=== PATIENT | male | born 1990 | race Caucasian/White ===

== ENCOUNTER 2018-05-04 12:40 | Inpatient (IN) | payer OTHER ==
[2018-05-04 14:26] VITALS: BMI 19.2
--- NOTE | 2018-05-04 15:25 | HP ---
COWS - Scale Resting Pulse: 0= [place] 80 or Below Sweatin= Chills/Flushing Restless Observation: 1= Difficult to Sit Still Pupil Size: 0= Normal to Room Light Bone or Joint Aches: 2= Severe Diffuse Aches Runny Nose/ Eye Tearin= Runny Nose/Eyes GI Upset > 30mins: 2= Nausea/Diarrhea Tremor Observation: 2= Slight Tremor Visible Yawning Observation: 2= >3x During Session Anxiety or Irritability: 2=Irritable/Anxious Goose Flesh Skin: 0=Smooth Skin COWS Score: 14 CIWA Score - CIWA Score Nausea/Vomitin-Mild Nausea/No Vomiting Muscle Tremors: 4-Moderate,w/Arms Extend Anxiety: 4-Mod. Anxious/Guarded Agitation: 4-Moderately Restless Paroxysmal Sweats: 1-Minimal Palms Moist Orientation: 0-Oriented Tacttile Disturbances: 1-Very Mild Itch/Numbness Auditory Disturbances: 0-None Visual Disturbances: 0-None Headache: 0-None Present CIWA-Ar Total Score: 15 Admission [facility] - HPI Chief Complaint: benzo and opiate withdrawal sx Allergies/Adverse Reactions: Allergies Allergy/AdvReac Type Severity Reaction Status Date / Time vancomycin Allergy Intermediate Rash Verified 05/04/18 15:22 History of Present Illness: 27 years old male with long history of opiate and benzo and nicotine dependence has anxiety and depression is admitted to detox Exam Limitations: No Limitations - Ebola screening Have you traveled outside of the country in the last 21 days: No Have you had contact with anyone from an Ebola affected area: No Have you been sick,other than usual withdrawal symptoms: No Do you have a fever: No - Review of Systems Constitutional: Loss of Appetite, Changes in sleep, Unintentional Wgt. Loss, Unexplained wgt Loss EENT: reports: No Symptoms Reported Respiratory: reports: No Symptoms reported Cardiac: reports: No Symptoms Reported GI: reports: Nausea, Poor Appetite, Poor Fluid Intake, Abdominal cramping : reports: No Symptoms Reported Musculoskeletal: reports: Back Pain, Joint Pain, Muscle Pain, Neck Pain Integumentary: reports: Change in Color (both inner elbows) Neuro: reports: Seizure (benzo withdrawal related), Tremors Endocrine: reports: No Symptoms Reported Hematology: reports: No Symptoms Reported Psychiatric: reports: Judgement Intact, Orientated x3, Anxious, Depressed Other Systems: Reviewed and Negative Patient History - Patient Medical History Hx Anemia: No Hx Asthma: No Hx Chronic Obstructive Pulmonary Disease (COPD): No Hx Cancer: No Hx Cardiac Disorders: No Hx Congestive Heart Failure: No Hx Hypertension: No Hx Hypercholesterolemia: No Hx Pacemaker: No HX Cerebrovascular Accident: No Hx Seizures: Yes (WITHDRAWAL SEIZURES - LAST EPISODE WAS IN 2012) Hx Dementia: No Hx Diabetes: No Hx Gastrointestinal Disorders: No Hx Liver Disease: No Hx Genitourinary Disorders: No Hx Sexually Transmitted Disorders: No Hx Renal Disease (ESRD): No Hx Thyroid Disease: No Hx Human Immunodeficiency Virus (HIV): No (04/21 last) Hx Hepatitis C: No Hx Depression: Yes (AND ANXIETY) Hx Suicide Attempt: No (denies) Hx Bipolar Disorder: No Hx Schizophrenia: No - Patient Surgical History Past Surgical History: Yes Hx Neurologic Surgery: No Hx Cataract Extraction: No Hx Cardiac Surgery: No Hx Lung Surgery: No Hx Breast Surgery: No Hx Breast Biopsy: No Hx Abdominal Surgery: Yes (LEFT INGUINAL HERNIA REPAIR AT 1 YRS OLD) Hx Appendectomy: No Hx Cholecystectomy: No Hx Genitourinary Surgery: No Hx Orthopedic Surgery: No Other Surgical History: left inguinal hernia repair at age 1 Anesthesia Reaction: No - PPD History Previous Implant?: Yes Documented Results: Negative w/o proof Implanted On Prior R Admission?: Yes Date: 03/10/14 Results: 0mm PPD to be Administered?: Yes - Smoking Cessation Smoking history: Current every day smoker Have you smoked in the past 12 months: Yes Aproximately how many cigarettes per day: 10 Cigars Per Day: 0 Hx Chewing Tobacco Use: No Initiated information on smoking cessation: Yes 'Breaking Loose' booklet given: 05/04/18 - Substance & Tx. History Hx Alcohol Use: No Hx Substance Use: Yes Substance Use Type: Cocaine, Heroin, Opiates, Tranquilizers Hx Substance Use Treatment: Yes (02/2018 [facility]) - Substances Abused Heroin Route: Injection Frequency: Daily Amount used: 6-8 bags Age of first use: 23 Date of Last Use: 05/03/18 Cocaine Route: Injection Frequency: Daily Amount used: $100 Age of first use: 18 Date of Last Use: 05/03/18 Xanax Route: Oral Frequency: Daily Amount used: 8-10 mg. Age of first use: 24 Date of Last Use: 05/03/18 Family Disease History - Family Disease History Family Disease History: Heart Disease: Grandparent (), Other: Father, Mother (thyroid), Brother (/OD) Admission Physical Exam [facility] - Vital Signs Vital Signs: Vital Signs - 24 hr 05/04/18 14:22 Temperature 97.4 F L Pulse Rate 72 Respiratory 20 Rate Blood Pressure 111/68 - Physical General Appearance: Yes: Appropriately Dressed, Mild Distress, Thin, Tremorous, Irritable, Sweating, Anxious HEENTM: Yes: Hearing grossly Normal, Normocephalic, Normal Voice Respiratory: Yes: Chest Non-Tender, Lungs Clear, Normal Breath Sounds, No Respiratory Distress, No Accessory Muscle Use Neck: Yes: Supple, Trachea in good position Breast: Yes: Breasts Symetrical, No Discharge Cardiology: Yes: Regular Rhythm, Regular Rate, S1, S2 Abdominal: Yes: Normal Bowel Sounds, Non Tender, Flat Genitourinary: Yes: Within Normal Limits Back: Yes: Normal Inspection Musculoskeletal: Yes: full range of Motion, Gait Steady, Back pain, Muscle Pain Extremities: Yes: Normal Inspection (iv heroin both inner elbows), Normal Range of Motion, Non-Tender, Tremors Neurological: Yes: Fully Oriented, Alert, Motor Strength 5/5, Normal Response, Depressed Affect Integumentary: Yes: Warm, Track [place] Lymphatic: Yes: Within Normal Limits - Diagnostic (1) Opioid dependence with withdrawal Current Visit: Yes Status: Acute (2) Nicotine dependence Current Visit: Yes Status: Acute Qualifiers: Nicotine product type: cigarettes Substance use status: in withdrawal Qualified Code(s): F17.213 - Nicotine dependence, cigarettes, with withdrawal (3) Weight decreased Current Visit: Yes Status: Acute (4) Sedative, hypnotic or anxiolytic dependence with withdrawal, uncomplicated Current Visit: Yes Status: Acute Cleared for Admission [facility] - Detox or Rehab [facility] Level of Care: Medically Managed Detox Regimen/Protocol: Methadone/Valium [facility] Breath Alcohol Content Breath Alcohol Content: 0 Urine Drug Screen - Control Is Test Valid: Yes - Results Drug Screen Negative: No Urine Drug Screen Results: PINA-Cocaine, OPI-Opiates, BZO-Benzodiazepines, MTD- Methadone
[2018-05-04] MEDS ORDERED: guaiFENesin/D-METHORPHAN HB 10 ML UNIT-DOSE CUPS PO PRN (15:31)
[2018-05-04] MEDS ORDERED: MAG HYDROX/AL HYDROX/SIMETH 30 ML UNIT-DOSE CUP PO PRN (15:31)
[2018-05-04] MEDS ORDERED: NICOTINE POLACRILEX 2 MG GUM BC PRN (15:31)
[2018-05-04] MEDS ORDERED: MAGNESIUM HYDROX 2400MG/30ML ORAL SUSPENSION 30 ML CUP PO PRN (15:31)
[2018-05-04] MEDS ORDERED: LOPERAMIDE HCL 2 MG CAPSULE PO PRN (15:31)
[2018-05-04] MEDS ORDERED: P-EPHED 60MG/TRIPROLIDI 2.5MG TABLET PO PRN (15:31)
[2018-05-04] MEDS ORDERED: MAGNESIUM CITRATE 300 ML BOTTLE PO PRN (15:31)
[2018-05-04] MEDS ORDERED: ACETAMINOPHEN 325 MG TABLET (FP) PO PRN (15:31)
[2018-05-04] MEDS ORDERED: MENTHOL/PHENOL 1 EACH UD MM PRN (15:31)
[2018-05-04] MEDS ORDERED: IBUPROFEN 400 MG TABLET (FP) PO PRN (15:31)
[2018-05-04] MEDS ORDERED: METHADONE HCL 10 MG TABLET (FOR DETOX USE ONLY) PO ONE ×2 (17:30→23:00)
[2018-05-04] MEDS ORDERED: diazePAM 5 MG TABLET PO ONE (17:30)
[2018-05-04] MEDS: GABAPENTIN 100 MG CAPSULE (FP) PO SCH ×2 (18:04→22:57)
[2018-05-04] MEDS: BACLOFEN 10 MG TABLET (FP) PO SCH ×2 (18:04→22:57)
[2018-05-04] MEDS: BACITRACIN 0.9 GM PACKET TP SCH ×2 (18:04→22:58)
[2018-05-04] MEDS: NICOTINE 14 MG/24 HOURS TOPICAL PATCH TD SCH (18:06)
[2018-05-04] MEDS ORDERED: MELATONIN 5 MG TABLETS PO PRN (22:00)
[2018-05-04] MEDS ORDERED: THIAMINE HCL 100 MG TABLET (FP) PO SCH (22:00)
[2018-05-04] MEDS: diazePAM 5 MG TABLET PO SCH (22:57)
[2018-05-04 23:15] LABS: URINE APPEARANCE CLEAR; URINE BILIRUBIN NEGATIVE (<2.0 mg/dL); URINE COLOR LTYELLOW; URINE GLUCOSE (UA) NEGATIVE (NEGATIVE); URINE KETONE NEGATIVE (NEGATIVE); URINE LEUK ESTERASE NEGATIVE (NEGATIVE); URINE NITRITE NEGATIVE (NEGATIVE); URINE PROTEIN NEGATIVE (NEGATIVE); URINE UROBILINOGEN NEGATIVE mg/dL (0.2-1.0)
[2018-05-05] MEDS: diazePAM 5 MG TABLET PO SCH ×2 (06:41→14:58)
[2018-05-05] MEDS: BACLOFEN 10 MG TABLET (FP) PO SCH ×2 (08:37→14:58)
[2018-05-05] MEDS: diazePAM 5 MG TABLET PO PRN ×2 (08:37→12:38)
[2018-05-05] MEDS: GABAPENTIN 100 MG CAPSULE (FP) PO SCH ×2 (08:37→14:58)
[2018-05-05] MEDS ORDERED: PRENATAL VITAMINS W/ FOLIC ACID TABLET (FP) PO SCH (10:00)
[2018-05-05] MEDS ORDERED: METHADONE HCL 10 MG TABLET (FOR DETOX USE ONLY) PO SCH (10:00)
[2018-05-05 10:17] LABS: HEMATOCRIT 40.6 % (35.4-49); HEMOGLOBIN 13.9 GM/dL (11.7-16.9); MCH 31.4 pg (25.7-33.7); MCHC 34.1 g/dl (32.0-35.9); MEAN CELL VOLUME 91.8 fl (80-96); MEAN PLT VOLUME 9.2 fl (7.5-11.1); PLATELET COUNT 210 K/MM3 (134-434); RBC 4.42 M/mm3 (4.00-5.60); RDW 14.1 % (11.9-15.9)
[2018-05-05 10:23] LABS: CHLORIDE 110 mmol/L (98-107); POTASSIUM 4.4 mmol/L (3.5-5.1); SODIUM 145 mmol/L (136-145)
[2018-05-05 10:43] LABS: ALBUMIN 3.7 g/dl (3.4-5.0); ALK PHOS 55 U/L (45-117); ANION GAP 6 (8-16); BILIRUBIN,TOTAL 0.4 mg/dL (0.2-1.0); BLOOD UREA NITROGEN 8 mg/dL (7-18); CALCIUM 9.2 mg/dL (8.5-10.1); CO2 29 mmol/L (21-32); CREATININE 0.9 mg/dL (0.7-1.3); GLUCOSE,RANDOM 93 mg/dL (74-106); SGOT/AST 12 U/L (15-37); SGPT/ALT 19 U/L (12-78); TOT PROT 6.4 g/dl (6.4-8.2)
[2018-05-05] MEDS: BACITRACIN 0.9 GM PACKET TP SCH ×2 (10:46→14:58)
[2018-05-05] MEDS: NICOTINE 14 MG/24 HOURS TOPICAL PATCH TD SCH (10:47)
--- NOTE | 2018-05-05 12:03 | PN ---
[facility] CIWA - CIWA Score Nausea/Vomitin-No Nausea/No Vomiting Muscle Tremors: 4-Moderate,w/Arms Extend Anxiety: 4-Mod. Anxious/Guarded Agitation: 3 Paroxysmal Sweats: 1-Minimal Palms Moist Orientation: 0-Oriented Tacttile Disturbances: 0-None Auditory Disturbances: 0-None Visual Disturbances: 0-None Headache: 0-None Present CIWA-Ar Total Score: 12 S COWS - Scale Resting Pulse: 0= [place] 80 or Below Sweatin= Chills/Flushing Restless Observation: 3= Extraneous Movement Pupil Size: 2= Moderately Dilated Bone or Joint Aches: 1= Mild Discomfort Runny Nose/ Eye Tearin= None GI Upset > 30mins: 0= None Tremor Observation of Outstretched Hands: 2= Slight Tremor Visible Yawning Observation: 1= 1-2x During Session Anxiety or Irritability: 2=Irritable/Anxious Goose Flesh Skin: 0=Smooth Skin COWS Score: 12 S Progress Note (SOAP) Subjective: ANXIETY,HOT/COLD CHILLS,INTERMITTENT SLEEP,FATIGUE, Objective: 05/05/18 12:00 Vital Signs 05/05/18 05/05/18 05/05/18 06:29 06:30 09:18 Temperature 97.4 F L 97.0 F L Pulse Rate 41 L 43 L Respiratory 18 18 18 Rate Blood Pressure 85/55 104/51 Laboratory Tests 05/04/18 05/05/18 05/05/18 Unknown 07:00 07:00 WBC 5.0 RBC 4.42 Hgb 13.9 Hct 40.6 MCV 91.8 MCH 31.4 MCHC 34.1 RDW 14.1 Plt Count 210 MPV 9.2 Sodium 145 Potassium 4.4 Chloride 110 H Carbon Dioxide 29 Anion Gap 6 L BUN 8 Creatinine 0.9 Creat Clearance w eGFR > 60 Random Glucose 93 D Calcium 9.2 Total Bilirubin 0.4 AST 12 L ALT 19 D Alkaline Phosphatase 55 Total Protein 6.4 Albumin 3.7 Urine Color Ltyellow Urine Appearance Clear Urine pH 6.0 Ur Specific [place] 1.011 Urine Protein Negative Urine Glucose (UA) Negative Urine Ketones Negative Urine Blood Negative Urine Nitrite Negative Urine Bilirubin Negative Urine Urobilinogen Negative Ur Leukocyte Esterase Negative VS NOTED. PT REPORTS BP AND P ARE HIS NORMAL RANGE. ASYMPTOMATIC. Assessment: 05/05/18 12:00 WITHDRAWAL SX Plan: CONTINUE DETOX INCREASE PO FLUIDS
--- NOTE | 2018-05-05 12:30 | CONSULT ---
[facility] Psychiatric Consult - Data Date of interview: 05/05/18 Admission source: [facility] Identifying data: Patient is a 27 year old single male, without kids, unemployed , and currently homeless. This is one of multiple admissions for patient. Pt. admitted to for opioid, cocaine, and benzodiazepine dependence. Substance Abuse History: Smoking Cessation. Smoking history: Current every day smoker. Have you smoked in the past 12 months: Yes. Aproximately how many cigarettes per day: 10. Cigars Per Day: 0. Hx Chewing Tobacco Use: No. Initiated information on smoking cessation: Yes. 'Breaking Loose' booklet given : 05/04/18. - Substance & Tx. History. Hx Alcohol Use: No. Hx Substance Use: Yes. Substance Use Type: Cocaine, Heroin, Opiates, Tranquilizers. Hx Substance Use Treatment: Yes (02/2018 [facility]). - Substances Abused. Heroin. Route: Injection. Frequency: Daily. Amount used: 6-8 bags. Age of first use: 23. Date of Last Use: 05/03/18. Cocaine. Route: Injection. Frequency: Daily. Amount used: $100. Age of first use: 18. Date of Last Use: 05/03/18. Xanax. Route: Oral. Frequency: Daily. Amount used: 8-10 mg. Age of first use: 24. Date of Last Use: 05/03/18 Medical History: Seizures (withdrawal seizure, last episode in 2012), left inguinal hernia repair at 1 years of age. Psychiatric History: Patient denies h/o psychiatric hospitalization and suicide attempt. Patient reports seeing a psychiatrist several years ago at [facility] in [place] and was prescribed seroquel 50mg. Patient denies current OPD. Pt. reports poor sleep. Physical/Sexual Abuse/Trauma History: Denies. Mental Status Exam - Mental Status Exam Alert and Oriented to: Time, Place, Person Cognitive Function: Good Patient Appearance: Well Groomed Mood: Euthymic Affect: Appropriate Patient Behavior: Guarded, Cooperative Speech Pattern: Appropriate Voice Loudness: Normal Thought Process: Intact, Goal Oriented Thought Disorder: Not Present Hallucinations: Denies Suicidal Ideation: Denies Homicidal Ideation: Denies Insight/Judgement: Poor Sleep: Poorly Appetite: Fair Muscle strength/Tone: Normal Gait/Station: Normal Psychiatric Findings - Problem List ([place] 1, 2,3) (1) Nicotine dependence Current Visit: Yes Status: Acute Qualifiers: Nicotine product type: cigarettes Substance use status: in withdrawal Qualified Code(s): F17.213 - Nicotine dependence, cigarettes, with withdrawal (2) Opioid dependence with withdrawal Current Visit: Yes Status: Acute (3) Sedative, hypnotic or anxiolytic dependence with withdrawal, uncomplicated Current Visit: Yes Status: Acute (4) Substance-induced sleep disorder Current Visit: Yes Status: Acute - Initial Treatment Plan Initial Treatment Plan: Psychoeducation provided. Detoxification in progress. Seroquel 50mg qhs ordered. Benefits and side effects discussed. Verbal consent given.
[2018-05-05 13:57] VITALS: BP 97/51; PULSE 55; TEMP 98.2
--- NOTE | 2018-05-05 16:23 | EKG ---
Test Reason : Blood Pressure : / mmHG Vent. Rate : 061 BPM Atrial Rate : 061 BPM P-R Int : 184 ms QRS Dur : 088 ms QT Int : 422 ms P-R-T Axes : 058 053 048 degrees QTc Int : 424 ms NORMAL SINUS RHYTHM EARLY REPOLARIZATION NORMAL ECG NO PREVIOUS ECGS AVAILABLE Confirmed by ODALIS FLORES MD ([id number]) on 05/05/2018 4:22:43 PM Referred By: Confirmed By:ODALIS FLORES MD
--- NOTE | 2018-05-05 16:34 | DS ---
[facility] Detox Discharge Summary Admission Date: 05/04/18 Discharge Date: 05/05/18 - History Present History: Opioid Dependence, Sedative Dependence Additional Comments: PATIENT HAS PERSONAL ISSUES TO ATTEND TO AND DOES NOT WISH TO STAY TO COMPLETE DETOX REGIMEN. RISKS OF LEAVING DETOX UNIT AGAINST MEDICAL ADVICE AND PRIOR TO COMPLETION OF DETOX REGIMEN EXPLAINED TO PATIENT. PATIENT ADVISED TO GO IMMEDIATELY TO NEAREST ER SHOULD ANY INTOLERABLE DETOX SYMPTOMS DEVELOP AT ANY TIME. PATIENT LEFT DETOX UNIT IN STABLE MEDICAL CONDITION. Pertinent Past History: Anxiety, Depression, History of Seizures (due to Withdrawal), Nicotine Dependence. - Physical Exam Results Vital Signs: Vital Signs Temperature 98.2 F 05/05/18 13:56 Pulse Rate 55 L 05/05/18 13:56 Respiratory Rate 18 05/05/18 13:56 Blood Pressure 97/51 05/05/18 13:56 O2 Sat by Pulse Oximetry (%) Pertinent Admission Physical Exam Findings: WITHDRAWAL SYMPTOMS. Laboratory Tests 05/04/18 05/05/18 05/05/18 Unknown 07:00 07:00 WBC 5.0 RBC 4.42 Hgb 13.9 Hct 40.6 MCV 91.8 MCH 31.4 MCHC 34.1 RDW 14.1 Plt Count 210 MPV 9.2 Sodium 145 Potassium 4.4 Chloride 110 H Carbon Dioxide 29 Anion Gap 6 L BUN 8 Creatinine 0.9 Creat Clearance w eGFR > 60 Random Glucose 93 D Calcium 9.2 Total Bilirubin 0.4 AST 12 L ALT 19 D Alkaline Phosphatase 55 Total Protein 6.4 Albumin 3.7 Urine Color Ltyellow Urine Appearance Clear Urine pH 6.0 Ur Specific [place] 1.011 Urine Protein Negative Urine Glucose (UA) Negative Urine Ketones Negative Urine Blood Negative Urine Nitrite Negative Urine Bilirubin Negative Urine Urobilinogen Negative Ur Leukocyte Esterase Negative RPR Titer 05/05/18 07:00 WBC RBC Hgb Hct MCV MCH MCHC RDW Plt Count MPV Sodium Potassium Chloride Carbon Dioxide Anion Gap BUN Creatinine Creat Clearance w eGFR Random Glucose Calcium Total Bilirubin AST ALT Alkaline Phosphatase Total Protein Albumin Urine Color Urine Appearance Urine pH Ur Specific [place] Urine Protein Urine Glucose (UA) Urine Ketones Urine Blood Urine Nitrite Urine Bilirubin Urine Urobilinogen Ur Leukocyte Esterase RPR Titer Nonreactive LABS NOTED. - Treatment Hospital Course: Detoxed Safely - Medication Discharge Medications: Ambulatory Orders NK [No Known Home Medication] 05/04/18 - Diagnosis (1) Nicotine dependence Current Visit: Yes Status: Acute Qualifiers: Nicotine product type: cigarettes Substance use status: in withdrawal Qualified Code(s): F17.213 - Nicotine dependence, cigarettes, with withdrawal (2) Opioid dependence with withdrawal Current Visit: Yes Status: Acute (3) Sedative, hypnotic or anxiolytic dependence with withdrawal, uncomplicated Current Visit: Yes Status: Acute (4) Substance-induced sleep disorder Current Visit: Yes Status: Acute (5) Weight decreased Current Visit: Yes Status: Acute - AMA Did Patient Leave Against Medical Advice: Yes (PT HAD PERSONAL ISSUES AND DID NOT WISH TO REMAIN TO COMPLETE DETOX REGIMEN)
[2018-05-05] MEDS ORDERED: QUEtiapine FUMARATE 50 MG TABLET PO SCH (22:00)
[2018-05-06] MEDS ORDERED: diazePAM 5 MG TABLET PO SCH (10:00)
[2018-05-06] MEDS ORDERED: METHADONE HCL 5 MG TABLET (FOR DETOX USE ONLY) PO SCH (10:00)
[2018-05-08] MEDS ORDERED: diazePAM 5 MG TABLET PO SCH (10:00)
[2018-05-08] MEDS ORDERED: METHADONE HCL 10 MG TABLET (FOR DETOX USE ONLY) PO SCH (10:00)
[2018-05-09] MEDS ORDERED: METHADONE HCL 5 MG TABLET (FOR DETOX USE ONLY) PO SCH (06:00)
== END 2018-05-05 16:36 | disposition left against medical advice (07) | DRG 770 ==
LOC: YASAS 12:40 → Y3N 17:17
PROVIDERS: ADMIT Surgery; ATTEND Surgery
PROC: HZ2ZZZZ Detoxification Services for Substance Abuse Treatment (ICD-10-PCS; principal; 2018-05-04)
DX: F11.23 Opioid dependence with withdrawal (principal); F13.230 Sedative, hypnotic or anxiolytic dependence with withdrawal, uncomplicated; F17.213 Nicotine dependence, cigarettes, with withdrawal; F19.282 Other psychoactive substance dependence with psychoactive substance-induced sleep disorder; F41.9 Anxiety disorder, unspecified; F32.9 Major depressive disorder, single episode, unspecified; R63.4 Abnormal weight loss; Z68.1 Body mass index [BMI] 19.9 or less, adult; Z86.69 Personal history of other diseases of the nervous system and sense organs
CPT/HCPCS: 36415; 80053; 81003; 85027; 86593; 93005; 93010; J0475

== ENCOUNTER 2018-11-12 10:03 | Inpatient (IN) | payer OTHER ==
[2018-11-12 12:51] VITALS: BMI 20.5
--- NOTE | 2018-11-12 13:46 | HP ---
COWS - Scale Resting Pulse: 0= [place] 80 or Below Sweatin= Chills/Flushing Restless Observation: 3= Extraneous Movement Pupil Size: 1= Pupils >than Normal Bone or Joint Aches: 2= Severe Diffuse Aches Runny Nose/ Eye Tearin= Runny Nose/Eyes GI Upset > 30mins: 2= Nausea/Diarrhea Tremor Observation: 2= Slight Tremor Visible Yawning Observation: 2= >3x During Session Anxiety or Irritability: 2=Irritable/Anxious Goose Flesh Skin: 0=Smooth Skin COWS Score: 17 CIWA Score Nausea/Vomitin Muscle Tremors: 2 Anxiety: 2 Agitation: 2 Paroxysmal Sweats: 1-Minimal Palms Moist Orientation: 0-Oriented Tacttile Disturbances: 1-Very Mild Itch/Numbness Auditory Disturbances: 1-Very Mild Visual Disturbances: 0-None Headache: 2-Mild CIWA-Ar Total Score: 13 - Admission Criteria [facility] Guidelines: Admission for Medically Managed Detox: Requires at least one of the followin. CIWA greater than 12 2. Seizures within the past 24 hours 3. Delirium tremens within the past 24 hours 4. Hallucinations within the past 24 hours 5. Acute intervention needed for co occurring medical disorder 6. Acute intervention needed for co occurring psychiatric disorder 7. Severe withdrawal that cannot be handled at a lower level of care (continued vomiting, continued diarrhea, abnormal vital signs) requiring intravenous medication and/or fluids 8. Patient presents the following: CIWA greater than 12 Admission Criteria Met: Admission criteria met Admission ROS [facility] Chief Complaint: i need help to stop using heroin and xanax,klonopin Allergies/Adverse Reactions: Allergies Allergy/AdvReac Type Severity Reaction Status Date / Time vancomycin Allergy Intermediate Rash Verified 11/12/18 15:01 History of Present Illness: this 28 years old male with heroin and klonopin and xanax dependence,seeking detox,withdrawal symptom,last detox [facility] 05/25 [facility],seen in [facility] [place] in crisis centre for 6 days,discharge on 10/28/18 i stop show suboxone filled on 10/20/18 for 10 days,lorazepam filled on for 7 days stated did noit want to continue suboxone and loazepam any more and did not take medication for 3 weeks syncope nicotine dependence multiple admissions in detox but keep relapsing longest period of sobriety 1 years plan for rehab or senior living residence ready and able Exam Limitations: No Limitations - Ebola screening Have you traveled outside of the country in the last 21 days: No (N) Have you had contact with anyone from an Ebola affected area: No Have you been sick,other than usual withdrawal symptoms: No Do you have a fever: No - Review of Systems Constitutional: Chills, Loss of Appetite, Malaise, Night Sweats, Changes in sleep, Weakness, Unintentional Wgt. Loss EENT: reports: Tearing, Nose Congestion Respiratory: reports: No Symptoms reported Cardiac: reports: Other (slow heart rate) GI: reports: Nausea, Vomiting, Abdominal cramping : reports: No Symptoms Reported Musculoskeletal: reports: Back Pain, Joint Pain, Muscle Pain, Neck Pain Integumentary: reports: Dryness Neuro: reports: Headache, Tremors Endocrine: reports: No Symptoms Reported Hematology: reports: No Symptoms Reported Psychiatric: reports: No Sypmtoms Reported, Judgement Intact, Mood/Affect Appropiate, Orientated x3 Other Systems: Reviewed and Negative Patient History - Patient Medical History Hx Anemia: No Hx Asthma: No Hx Chronic Obstructive Pulmonary Disease (COPD): No Hx Cancer: No Hx Cardiac Disorders: No Hx Congestive Heart Failure: No Hx Hypertension: No Hx Hypercholesterolemia: No Hx Pacemaker: No HX Cerebrovascular Accident: No Hx Seizures: Yes (WITHDRAWAL SEIZURES - LAST EPISODE WAS IN 2012) Hx Dementia: No Hx Diabetes: No Hx Gastrointestinal Disorders: No Hx Liver Disease: No Hx Genitourinary Disorders: No Hx Sexually Transmitted Disorders: No Hx Renal Disease (ESRD): No Hx Thyroid Disease: No Hx Human Immunodeficiency Virus (HIV): No (last 11/04 negative) Hx Hepatitis C: No Hx Depression: Yes (AND ANXIETY) Hx Suicide Attempt: No (denies) Hx Bipolar Disorder: No Hx Schizophrenia: No Other Medical History: no suicidal,no homicidal - Patient Surgical History Past Surgical History: Yes Hx Neurologic Surgery: No Hx Cataract Extraction: No Hx Cardiac Surgery: No Hx Lung Surgery: No Hx Breast Surgery: No Hx Breast Biopsy: No Hx Abdominal Surgery: Yes (LEFT INGUINAL HERNIA REPAIR AT 1 YRS OLD) Hx Appendectomy: No Hx Cholecystectomy: No Hx Genitourinary Surgery: No Hx Section: No Hx Orthopedic Surgery: No Other Surgical History: left inguinal hernia repair at age 1 Anesthesia Reaction: No - PPD History Previous Implant?: Yes Implanted On Prior [facility] Admission?: Yes Date: 05/06/18 Results: no reading PPD to be Administered?: Yes - Smoking Cessation Smoking history: Current every day smoker Have you smoked in the past 12 months: Yes Aproximately how many cigarettes per day: 20 Cigars Per Day: 0 Hx Chewing Tobacco Use: No Initiated information on smoking cessation: Yes 'Breaking Loose' booklet given: 11/12/18 - Substance & Tx. History Hx Alcohol Use: No Hx Substance Use: Yes Substance Use Type: Alcohol, Cocaine, Heroin, Tranquilizers - Substances Abused Heroin Route: Injection Frequency: Daily Amount used: 10 bags Age of first use: 24 Date of Last Use: 11/11/18 Alprazolam (Xanax) Route: Oral Frequency: Daily Amount used: 10 mgs Age of first use: 18 Date of Last Use: 11/11/18 Benzodiazepine (Klonopin) Route: Oral Frequency: Daily (10 mmgs) Amount used: 10 mgs Age of first use: 18 Date of Last Use: 11/11/18 Cocaine Route: Injection Frequency: 1-3 times last 30 days Amount used: 200$ Age of first use: 23 Date of Last Use: 11/10/18 Family Disease History - Family Disease History Family Disease History: Heart Disease: Grandparent (), Other: Father, Mother (thyroid), Brother (/OD) Admission Physical Exam S - Vital Signs Vital Signs: Vital Signs - 24 hr 11/12/18 12:49 Temperature 96.2 F L Pulse Rate 46 L Respiratory 18 Rate Blood Pressure 102/62 - Physical General Appearance: Yes: Moderate Distress, Tremorous, Irritable, Sweating, Anxious HEENTM: Yes: Normal ENT Inspection, ZACARIAS, Pharynx Normal Respiratory: Yes: Lungs Clear, No Respiratory Distress, Respiratory Distress Neck: Yes: Within Normal Limits, Supple, Trachea in good position Breast: Yes: Within Normal Limits Cardiology: Yes: Within Normal Limits, Bradycardia, Other Abdominal: Yes: Within Normal Limits, Normal Bowel Sounds, Non Tender, Flat, Soft Genitourinary: Yes: Within Normal Limits Back: Yes: Muscle Spasm Musculoskeletal: Yes: Back pain, Joint Stiffness, Muscle Pain Extremities: Yes: Tremors 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 NML intact, Fully Oriented, Alert, Motor Strength 5/5 Integumentary: Yes: Dry Lymphatic: Yes: Within Normal Limits - Diagnostic (1) Opioid dependence with withdrawal Current Visit: Yes Status: Acute (2) Uncomplicated sedative, hypnotic or anxiolytic withdrawal Current Visit: Yes Status: Acute (3) Cocaine dependence Current Visit: Yes Status: Acute (4) Nicotine dependence Current Visit: No Status: Acute Qualifiers: Nicotine product type: cigarettes Substance use status: in withdrawal Qualified Code(s): F17.213 - Nicotine dependence, cigarettes, with withdrawal (5) Bradycardia Current Visit: Yes Status: Acute Cleared for Admission [facility] - Detox or Rehab [facility] Level of Care: Medically Managed Detox Regimen/Protocol: Methadone/Valium S Breath Alcohol Content Breath Alcohol Content: 0 Urine Drug Screen - Results Drug Screen Negative: No Urine Drug Screen Results: PINA-Cocaine, OPI-Opiates, BZO-Benzodiazepines, MTD- Methadone, FEN-Fentanyl, BUP-Suboxone
[2018-11-12] MEDS ORDERED: guaiFENesin/D-METHORPHAN HB 10 ML UNIT-DOSE CUPS PO PRN (14:10)
[2018-11-12] MEDS ORDERED: ACETAMINOPHEN 325 MG TABLET (FP) PO PRN (14:10)
[2018-11-12] MEDS ORDERED: LOPERAMIDE HCL 2 MG CAPSULE PO PRN (14:10)
[2018-11-12] MEDS ORDERED: MENTHOL/PHENOL 1 EACH UD MM PRN (14:10)
[2018-11-12] MEDS ORDERED: MAG HYDROX/AL HYDROX/SIMETH 30 ML UNIT-DOSE CUP PO PRN (14:10)
[2018-11-12] MEDS ORDERED: MAGNESIUM HYDROX 2400MG/30ML ORAL SUSPENSION 30 ML CUP PO PRN (14:10)
[2018-11-12] MEDS ORDERED: MAGNESIUM CITRATE 300 ML BOTTLE PO PRN (14:10)
[2018-11-12] MEDS ORDERED: NICOTINE POLACRILEX 2 MG GUM BUC PRN (14:10)
[2018-11-12] MEDS ORDERED: P-EPHED 60MG/TRIPROLIDI 2.5MG TABLET PO PRN (14:10)
[2018-11-12] MEDS ORDERED: CYCLOBENZAPRINE HCL 10 MG TABLET (FP) PO PRN (14:16)
[2018-11-12] MEDS ORDERED: METHADONE HCL 10 MG TABLET (FOR DETOX USE ONLY) PO ONE ×2 (15:00→23:00)
[2018-11-12] MEDS ORDERED: diazePAM 5 MG TABLET PO ONE (15:30)
[2018-11-12] MEDS: NICOTINE 21 MG/24 HOURS TOPICAL PATCH TD SCH (16:01)
[2018-11-12] MEDS: diazePAM 5 MG TABLET PO PRN (17:58)
[2018-11-12] MEDS ORDERED: MELATONIN 5 MG TABLETS PO PRN (22:00)
[2018-11-12] MEDS: THIAMINE HCL 100 MG TABLET (FP) PO SCH (22:23)
[2018-11-12] MEDS: diazePAM 5 MG TABLET PO SCH (22:23)
[2018-11-13] MEDS: diazePAM 5 MG TABLET PO SCH ×3 (05:35→21:57)
[2018-11-13] MEDS ORDERED: METHADONE HCL 10 MG TABLET (FOR DETOX USE ONLY) PO SCH (10:00)
[2018-11-13] MEDS: NICOTINE 21 MG/24 HOURS TOPICAL PATCH TD SCH (10:36)
[2018-11-13] MEDS: PRENATAL VITAMINS W/ FOLIC ACID TABLET (FP) PO SCH (10:36)
[2018-11-13] MEDS: diazePAM 5 MG TABLET PO PRN ×2 (10:36→16:41)
[2018-11-13] MEDS: IBUPROFEN 400 MG TABLET (FP) PO PRN ×2 (10:38→20:09)
[2018-11-13 13:09] LABS: ALBUMIN 3.8 g/dl (3.4-5.0); ALK PHOS 67 U/L (45-117); ANION GAP 6 MMOL/L (8-16); BILIRUBIN,TOTAL 0.3 mg/dL (0.2-1); BLOOD UREA NITROGEN 8 mg/dL (7-18); CHLORIDE 107 mmol/L (98-107); CO2 27 mmol/L (21-32); CREATININE 0.8 mg/dL (0.55-1.3); GLUCOSE,RANDOM 95 mg/dL (74-106); POTASSIUM 4.1 mmol/L (3.5-5.1); SGOT/AST 22 U/L (15-37); SGPT/ALT 43 U/L (13-61); SODIUM 140 mmol/L (136-145); TOT PROT 6.5 g/dl (6.4-8.2)
[2018-11-13 13:13] LABS: HEMATOCRIT 42.2 % (35.4-49); HEMOGLOBIN 15.1 GM/dL (11.7-16.9); MCH 32.8 pg (25.7-33.7); MCHC 35.9 g/dl (32.0-35.9); MEAN CELL VOLUME 91.5 fl (80-96); MEAN PLT VOLUME 9.9 fl (7.5-11.1); PLATELET COUNT 226 K/MM3 (134-434); RBC 4.61 M/mm3 (4.00-5.60); WHITE BLOOD COUNT 5.5 K/mm3 (4.0-10.0)
--- NOTE | 2018-11-13 16:04 | PN ---
[facility] CIWA - CIWA Score Nausea/Vomitin Muscle Tremors: 4-Moderate,w/Arms Extend Anxiety: 4-Mod. Anxious/Guarded Agitation: 2 Paroxysmal Sweats: 3 Orientation: 0-Oriented Tacttile Disturbances: 1-Very Mild Itch/Numbness Auditory Disturbances: 0-None Visual Disturbances: 0-None Headache: 1-Very Mild CIWA-Ar Total Score: 17 BHS COWS - Scale Resting Pulse: 0= [place] 80 or Below Sweatin= Chills/Flushing Restless Observation: 3= Extraneous Movement Pupil Size: 1= Pupils >than Normal Bone or Joint Aches: 2= Severe Diffuse Aches Runny Nose/ Eye Tearin= Runny Nose/Eyes GI Upset > 30mins: 3= Vomiting/Diarrhea Tremor Observation of Outstretched Hands: 2= Slight Tremor Visible Yawning Observation: 1= 1-2x During Session Anxiety or Irritability: 2=Irritable/Anxious Goose Flesh Skin: 0=Smooth Skin COWS Score: 17 [facility] Progress Note (SOAP) Subjective: Tremor, chills, sweating, back pain, nausea, interrupted sleep Objective: 11/13/18 16:02 Last Vital Signs Temp Pulse Resp BP Pulse Ox 97.3 F L 46 L 16 95/60 11/13/18 15:12 11/13/18 15:12 11/13/18 15:12 11/13/18 15:12 Hypotension noted: 95/60; asymptomatic, encouraged to drink more water Bradycardic: pulse 46, denies symptoms, continue to monitor, follow up with PCP for monitoring Laboratory Tests 11/13/18 11/13/18 11/13/18 07:40 07:40 07:40 WBC 5.5 RBC 4.61 Hgb 15.1 Hct 42.2 MCV 91.5 MCH 32.8 MCHC 35.9 RDW 13.0 Plt Count 226 MPV 9.9 Sodium 140 Potassium 4.1 Chloride 107 Carbon Dioxide 27 Anion Gap 6 L BUN 8 Creatinine 0.8 Creat Clearance w eGFR > 60 Random Glucose 95 Calcium 9.0 Total Bilirubin 0.3 AST 22 ALT 43 Alkaline Phosphatase 67 Total Protein 6.5 Albumin 3.8 RPR Titer Nonreactive Labs reviewed Assessment: 11/13/18 16:04 Withdrawal symptoms Plan: Continue detox Encouraged PO water intake
--- NOTE | 2018-11-13 17:13 | EKG ---
Test Reason : Blood Pressure : / mmHG Vent. Rate : 048 BPM Atrial Rate : 048 BPM P-R Int : 186 ms QRS Dur : 092 ms QT Int : 468 ms P-R-T Axes : 058 052 045 degrees QTc Int : 418 ms SINUS BRADYCARDIA OTHERWISE NORMAL ECG WHEN COMPARED WITH ECG OF 04-MAY-2018 17:27, NO SIGNIFICANT CHANGE WAS FOUND Confirmed by MD GASTON MOYSES ([id number]) on 11/13/2018 5:12:49 PM Referred By: Confirmed By:BRIGID GASTON MD
[2018-11-13 21:38] VITALS: BP 101/58; PULSE 55; TEMP 97
[2018-11-13] MEDS: THIAMINE HCL 100 MG TABLET (FP) PO SCH (21:58)
[2018-11-13] MEDS ORDERED: diphenhydrAMINE HCL 25 MG CAPSULE (FP) PO PRN (22:00)
[2018-11-14] MEDS: diazePAM 5 MG TABLET PO PRN (00:41)
[2018-11-14] MEDS ORDERED: METHADONE HCL 5 MG TABLET (FOR DETOX USE ONLY) PO SCH (10:00)
[2018-11-14] MEDS ORDERED: diazePAM 5 MG TABLET PO SCH (10:00)
[2018-11-14] MEDS: NICOTINE 21 MG/24 HOURS TOPICAL PATCH TD SCH (10:35)
[2018-11-14] MEDS: PRENATAL VITAMINS W/ FOLIC ACID TABLET (FP) PO SCH (10:35)
--- NOTE | 2018-11-14 11:28 | PN ---
[facility] CIWA - CIWA Score Nausea/Vomitin-Mild Nausea/No Vomiting Muscle Tremors: 3 Anxiety: 4-Mod. Anxious/Guarded Agitation: 3 Paroxysmal Sweats: 1-Minimal Palms Moist Orientation: 1-Uncertain about Date Tacttile Disturbances: 0-None Auditory Disturbances: 0-None Visual Disturbances: 0-None Headache: 0-None Present CIWA-Ar Total Score: 13 BHS COWS - Scale Resting Pulse: 0= [place] 80 or Below Sweatin= Chills/Flushing Restless Observation: 1= Difficult to Sit Still Pupil Size: 0= Normal to Room Light Bone or Joint Aches: 1= Mild Discomfort Runny Nose/ Eye Tearin= Nasal Congestion GI Upset > 30mins: 2= Nausea/Diarrhea Tremor Observation of Outstretched Hands: 2= Slight Tremor Visible Yawning Observation: 2= >3x During Session Anxiety or Irritability: 2=Irritable/Anxious Goose Flesh Skin: 0=Smooth Skin COWS Score: 12 S Progress Note (SOAP) Subjective: tremor sweat anxiety body aches joints pain restlessness Objective: 11/14/18 11:25 Vital Signs Temperature 97 F L 11/13/18 21:37 Pulse Rate 55 L 11/13/18 21:37 Respiratory Rate 18 11/14/18 03:30 Blood Pressure 101/58 L 11/13/18 21:37 O2 Sat by Pulse Oximetry (%) Laboratory Last Values WBC 5.5 K/mm3 (4.0-10.0) 11/13/18 07:40 RBC 4.61 M/mm3 (4.00-5.60) 11/13/18 07:40 Hgb 15.1 GM/dL (11.7-16.9) 11/13/18 07:40 Hct 42.2 % (35.4-49) 11/13/18 07:40 MCV 91.5 fl (80-96) 11/13/18 07:40 MCH 32.8 pg (25.7-33.7) 11/13/18 07:40 MCHC 35.9 g/dl (32.0-35.9) 11/13/18 07:40 RDW 13.0 % (11.9-15.9) 11/13/18 07:40 Plt Count 226 K/MM3 (134-434) 11/13/18 07:40 MPV 9.9 fl (7.5-11.1) 11/13/18 07:40 Sodium 140 mmol/L (136-145) 11/13/18 07:40 Potassium 4.1 mmol/L (3.5-5.1) 11/13/18 07:40 Chloride 107 mmol/L (98-107) 11/13/18 07:40 Carbon Dioxide 27 mmol/L (21-32) 11/13/18 07:40 Anion Gap 6 MMOL/L (8-16) L 11/13/18 07:40 BUN 8 mg/dL (7-18) 11/13/18 07:40 Creatinine 0.8 mg/dL (0.55-1.3) 11/13/18 07:40 Creat Clearance w eGFR > 60 (>60) 11/13/18 07:40 Random Glucose 95 mg/dL (74-106) 11/13/18 07:40 Calcium 9.0 mg/dL (8.5-10.1) 11/13/18 07:40 Total Bilirubin 0.3 mg/dL (0.2-1) 11/13/18 07:40 AST 22 U/L (15-37) 11/13/18 07:40 ALT 43 U/L (13-61) 11/13/18 07:40 Alkaline Phosphatase 67 U/L (45-117) 11/13/18 07:40 Total Protein 6.5 g/dl (6.4-8.2) 11/13/18 07:40 Albumin 3.8 g/dl (3.4-5.0) 11/13/18 07:40 RPR Titer Nonreactive (NONREACTIVE) 11/13/18 07:40 lab noted Assessment: 11/14/18 11:31 withdrawal sx Plan: continue detox
--- NOTE | 2018-11-14 15:11 | DS ---
[facility] Detox Discharge Summary Admission Date: 11/12/18 Discharge Date: 11/14/18 - History Present History: Opioid Dependence, Sedative Dependence Additional Comments: 28 years old male admitted on for benzo and opiate withdrawal stabilization insists to leave the detox unit without apparent reason patient is alert no acute distress denies suicidal no homocidal no self destructive behavior [facility] services Pertinent Past History: encourage the patient [facility] provide positive input that last detox last one day and this detox last two days patient hesitates to discuss sobriety - Physical Exam Results Vital Signs: Vital Signs Temperature 97 F L 11/13/18 21:37 Pulse Rate 55 L 11/13/18 21:37 Respiratory Rate 18 11/14/18 03:30 Blood Pressure 101/58 L 11/13/18 21:37 O2 Sat by Pulse Oximetry (%) Pertinent Admission Physical Exam Findings: benzo and opiate withdrawal sx Vital Signs Temperature 97 F L 11/13/18 21:37 Pulse Rate 55 L 11/13/18 21:37 Respiratory Rate 18 11/14/18 03:30 Blood Pressure 101/58 L 11/13/18 21:37 O2 Sat by Pulse Oximetry (%) Laboratory Last Values WBC 5.5 K/mm3 (4.0-10.0) 11/13/18 07:40 RBC 4.61 M/mm3 (4.00-5.60) 11/13/18 07:40 Hgb 15.1 GM/dL (11.7-16.9) 11/13/18 07:40 Hct 42.2 % (35.4-49) 11/13/18 07:40 MCV 91.5 fl (80-96) 11/13/18 07:40 MCH 32.8 pg (25.7-33.7) 11/13/18 07:40 MCHC 35.9 g/dl (32.0-35.9) 11/13/18 07:40 RDW 13.0 % (11.9-15.9) 11/13/18 07:40 Plt Count 226 K/MM3 (134-434) 11/13/18 07:40 MPV 9.9 fl (7.5-11.1) 11/13/18 07:40 Sodium 140 mmol/L (136-145) 11/13/18 07:40 Potassium 4.1 mmol/L (3.5-5.1) 11/13/18 07:40 Chloride 107 mmol/L (98-107) 11/13/18 07:40 Carbon Dioxide 27 mmol/L (21-32) 11/13/18 07:40 Anion Gap 6 MMOL/L (8-16) L 11/13/18 07:40 BUN 8 mg/dL (7-18) 11/13/18 07:40 Creatinine 0.8 mg/dL (0.55-1.3) 11/13/18 07:40 Creat Clearance w eGFR > 60 (>60) 11/13/18 07:40 Random Glucose 95 mg/dL (74-106) 11/13/18 07:40 Calcium 9.0 mg/dL (8.5-10.1) 11/13/18 07:40 Total Bilirubin 0.3 mg/dL (0.2-1) 11/13/18 07:40 AST 22 U/L (15-37) 11/13/18 07:40 ALT 43 U/L (13-61) 11/13/18 07:40 Alkaline Phosphatase 67 U/L (45-117) 11/13/18 07:40 Total Protein 6.5 g/dl (6.4-8.2) 11/13/18 07:40 Albumin 3.8 g/dl (3.4-5.0) 11/13/18 07:40 RPR Titer Nonreactive (NONREACTIVE) 11/13/18 07:40 lab noted - Treatment Hospital Course: Detox Protocol Followed, Responded well Patient has Accepted a Rehab [facility] - Medication Discharge Medications: Ambulatory Orders NK [No Known Home Medication] 05/04/18 - Diagnosis (1) Opioid dependence with withdrawal Status: Acute (2) Sedative, hypnotic or anxiolytic dependence with withdrawal, uncomplicated Status: Acute (3) Weight decreased Status: Acute (4) Nicotine dependence Status: Acute Qualifiers: Nicotine product type: cigarettes Substance use status: in withdrawal Qualified Code(s): F17.213 - Nicotine dependence, cigarettes, with withdrawal - AMA Did Patient Leave Against Medical Advice: Yes
[2018-11-16] MEDS ORDERED: diazePAM 5 MG TABLET PO SCH (10:00)
[2018-11-16] MEDS ORDERED: METHADONE HCL 10 MG TABLET (FOR DETOX USE ONLY) PO SCH (10:00)
[2018-11-17] MEDS ORDERED: METHADONE HCL 5 MG TABLET (FOR DETOX USE ONLY) PO SCH (06:00)
== END 2018-11-14 12:47 | disposition left against medical advice (07) | DRG 770 ==
LOC: YASAS 10:03 → Y3N 14:13
PROC: HZ2ZZZZ Detoxification Services for Substance Abuse Treatment (ICD-10-PCS; principal; 2018-11-12)
DX: F11.23 Opioid dependence with withdrawal (principal); F13.230 Sedative, hypnotic or anxiolytic dependence with withdrawal, uncomplicated; F14.20 Cocaine dependence, uncomplicated; F17.213 Nicotine dependence, cigarettes, with withdrawal; F41.8 Other specified anxiety disorders; F32.9 Major depressive disorder, single episode, unspecified; I95.9 Hypotension, unspecified; G40.509 Epileptic seizures related to external causes, not intractable, without status epilepticus; R63.4 Abnormal weight loss; Z68.20 Body mass index [BMI] 20.0-20.9, adult; R00.1 Bradycardia, unspecified; Z86.79 Personal history of other diseases of the circulatory system
CPT/HCPCS: 36415; 80053; 85027; 86593; 93005; 93010

== ENCOUNTER 2019-01-05 18:19 | Inpatient (IN) | payer OTHER ==
[2019-01-05 18:37] VITALS: BMI 17.9
--- NOTE | 2019-01-05 19:57 | HP ---
COWS - Scale Resting Pulse: 0= [place] 80 or Below Sweatin= Chills/Flushing Restless Observation: 1= Difficult to Sit Still Pupil Size: 2= Moderately Dilated Bone or Joint Aches: 2= Severe Diffuse Aches Runny Nose/ Eye Tearin= Runny Nose/Eyes GI Upset > 30mins: 3= Vomiting/Diarrhea Tremor Observation: 1= Tremor [place], Not Seen Yawning Observation: 0= None Anxiety or Irritability: 2=Irritable/Anxious Goose Flesh Skin: 0=Smooth Skin COWS Score: 14 CIWA Score Nausea/Vomitin Muscle Tremors: 2 Anxiety: 4-Mod. Anxious/Guarded Agitation: 0-Normal Activity Paroxysmal Sweats: 2 Orientation: 0-Oriented Tacttile Disturbances: 1-Very Mild Itch/Numbness Auditory Disturbances: 0-None Visual Disturbances: 2-Mild Sensitivity Headache: 2-Mild CIWA-Ar Total Score: 16 - Admission Criteria [facility]ASAS Guidelines: Admission for Medically Managed Detox: Requires at least one of the followin. CIWA greater than 12 2. Seizures within the past 24 hours 3. Delirium tremens within the past 24 hours 4. Hallucinations within the past 24 hours 5. Acute intervention needed for co occurring medical disorder 6. Acute intervention needed for co occurring psychiatric disorder 7. Severe withdrawal that cannot be handled at a lower level of care (continued vomiting, continued diarrhea, abnormal vital signs) requiring intravenous medication and/or fluids 8. Patient presents the following: CIWA greater than 12 Admission Criteria Met: Admission criteria met Admission ROS [facility] Chief Complaint: detox from heroin and benzo Allergies/Adverse Reactions: Allergies Allergy/AdvReac Type Severity Reaction Status Date / Time vancomycin Allergy Intermediate Rash Verified 11/12/18 15:01 History of Present Illness: 28 yo male with hx of IV heroin, benzo and nicotine dependence is here seeking detox, this is one of multiple admissions d/t relapse. PMHX: weight loss, anxiety. Denies suicidal / homicidal ideation. Overdose x 1 , two years ago. Patient currently homeless. Reports one year sobriety while on Suboxone and recently relapsed. Exam Limitations: No Limitations - Ebola screening Have you traveled outside of the country in the last 21 days: No (N) Have you had contact with anyone from an Ebola affected area: No Have you been sick,other than usual withdrawal symptoms: No Do you have a fever: No - Review of Systems Constitutional: Chills, Loss of Appetite, Unintentional Wgt. Loss (20lbs) EENT: reports: Nose Congestion Respiratory: reports: No Symptoms reported Cardiac: reports: No Symptoms Reported GI: reports: Diarrhea, Poor Appetite, Poor Fluid Intake, Abdominal cramping : reports: No Symptoms Reported Musculoskeletal: reports: Back Pain, Joint Pain Integumentary: reports: Dryness, Other (track nunez) Neuro: reports: Headache Endocrine: reports: Increased Thirst Hematology: reports: No Symptoms Reported Psychiatric: reports: Orientated x3, Anxious Other Systems: Reviewed and Negative Patient History - Patient Medical History Hx Anemia: No Hx Asthma: No Hx Chronic Obstructive Pulmonary Disease (COPD): No Hx Cancer: No Hx Cardiac Disorders: No Hx Congestive Heart Failure: No Hx Hypertension: No Hx Hypercholesterolemia: No Hx Pacemaker: No HX Cerebrovascular Accident: No Hx Seizures: Yes (WITHDRAWAL SEIZURES - LAST EPISODE WAS IN 2012) Hx Dementia: No Hx Diabetes: No Hx Gastrointestinal Disorders: No Hx Liver Disease: No Hx Genitourinary Disorders: No Hx Sexually Transmitted Disorders: No Hx Renal Disease (ESRD): No Hx Thyroid Disease: No Hx Human Immunodeficiency Virus (HIV): No (last 11/04 negative) Hx Hepatitis C: No Hx Depression: Yes (AND ANXIETY) Hx Suicide Attempt: No (denies) Hx Bipolar Disorder: No Hx Schizophrenia: No - Patient Surgical History Past Surgical History: Yes Hx Neurologic Surgery: No Hx Cataract Extraction: No Hx Cardiac Surgery: No Hx Lung Surgery: No Hx Breast Surgery: No Hx Breast Biopsy: No Hx Abdominal Surgery: Yes (LEFT INGUINAL HERNIA REPAIR AT 1 YRS OLD) Hx Appendectomy: No Hx Cholecystectomy: No Hx Genitourinary Surgery: No Hx Section: No Hx Orthopedic Surgery: No Other Surgical History: left inguinal hernia repair at age 1 Anesthesia Reaction: No - PPD History Date: 11/14/18 Results: no reading - Smoking Cessation Smoking history: Current every day smoker Have you smoked in the past 12 months: Yes Aproximately how many cigarettes per day: 20 Cigars Per Day: 0 Hx Chewing Tobacco Use: No Initiated information on smoking cessation: Yes 'Breaking Loose' booklet given: 01/05/19 - Substance & Tx. History Hx Alcohol Use: No Hx Substance Use: Yes Substance Use Type: Heroin, Tranquilizers Hx Substance Use Treatment: Yes ([facility] 11/12/18 - 11/14/18 left AMA ) - Substances Abused heroin Route: Injection Frequency: Daily Amount used: 5 - 7 Age of first use: 24 Date of Last Use: 01/05/19 (3:45AM) klonopin Route: Oral Frequency: Daily Amount used: 8 mg Age of first use: 15 Date of Last Use: 01/04/19 xanax Route: Oral Frequency: Daily Amount used: 10 mg Age of first use: 15 Date of Last Use: 01/01/19 Family Disease History - Family Disease History Family Disease History: Heart Disease: Grandparent (), Other: Father, Mother (thyroid), Brother (/OD) Admission Physical Exam S - Vital Signs Vital Signs: Vital Signs - 24 hr 01/05/19 18:34 Temperature 97.5 F L Pulse Rate 77 Respiratory 18 Rate Blood Pressure 100/58 L - Physical General Appearance: Yes: Disheveled, Cachetic, Sweating, Anxious HEENTM: Yes: EOMI, Hearing grossly Normal, Normal ENT Inspection, Normocephalic , Normal Voice, ZACARIAS, Pharynx Normal, Tm's normal, Rhinorrhea Respiratory: Yes: Chest Non-Tender, Lungs Clear, Normal Breath Sounds, No Respiratory Distress, No Accessory Muscle Use Neck: Yes: Within Normal Limits Breast: Yes: Breast Exam Deferred Cardiology: Yes: Regular Rhythm, Regular Rate Abdominal: Yes: Normal Bowel Sounds, Non Tender, Flat, Soft Genitourinary: Yes: Within Normal Limits Back: Yes: CVA Tenderness (L) Musculoskeletal: Yes: full range of Motion, Gait Steady, Pelvis Stable Extremities: Yes: Normal Capillary Refill, Normal Inspection, Normal Range of Motion Neurological: Yes: 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 design 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 II-XII NML intact, Fully Oriented, Alert, Motor Strength 5/5, Depressed Affect Integumentary: Yes: Normal Color, Warm, Diaphoresis Lymphatic: Yes: Within Normal Limits - Diagnostic (1) Nicotine dependence Current Visit: Yes Status: Acute Qualifiers: Nicotine product type: cigarettes Substance use status: in withdrawal Qualified Code(s): F17.213 - Nicotine dependence, cigarettes, with withdrawal (2) Opioid dependence with withdrawal Current Visit: Yes Status: Acute (3) Sedative, hypnotic or anxiolytic dependence with withdrawal, uncomplicated Current Visit: Yes Status: Acute (4) Weight decreased Current Visit: Yes Status: Acute Cleared for Admission [facility] - Detox or Rehab [facility] Level of Care: Medically Managed Detox Regimen/Protocol: Methadone/Valium S Breath Alcohol Content Breath Alcohol Content: 0 Urine Drug Screen - Results Drug Screen Negative: No Urine Drug Screen Results: PINA-Cocaine, OPI-Opiates, MET-Methamphetamine, BZO- Benzodiazepines, MTD-Methadone Inpatient Rehab Admission - Rehab Decision to Admit Inpatient rehab admission?: No
[2019-01-05] MEDS ORDERED: MAG HYDROX/AL HYDROX/SIMETH 30 ML UNIT-DOSE CUP PO PRN (20:04)
[2019-01-05] MEDS ORDERED: MAGNESIUM HYDROX 2400MG/30ML ORAL SUSPENSION 30 ML CUP PO PRN (20:04)
[2019-01-05] MEDS ORDERED: guaiFENesin/D-METHORPHAN HB 10 ML UNIT-DOSE CUPS PO PRN (20:04)
[2019-01-05] MEDS ORDERED: MENTHOL/PHENOL 1 EACH UD MM PRN (20:04)
[2019-01-05] MEDS ORDERED: LOPERAMIDE HCL 2 MG CAPSULE PO PRN (20:04)
[2019-01-05] MEDS ORDERED: ACETAMINOPHEN 325 MG TABLET (FP) PO PRN (20:04)
[2019-01-05] MEDS ORDERED: P-EPHED 60MG/TRIPROLIDI 2.5MG TABLET PO PRN (20:04)
[2019-01-05] MEDS ORDERED: MAGNESIUM CITRATE 300 ML BOTTLE PO PRN (20:04)
[2019-01-05] MEDS ORDERED: IBUPROFEN 400 MG TABLET (FP) PO PRN (20:04)
[2019-01-05] MEDS ORDERED: diazePAM 5 MG TABLET PO ONE (21:30)
[2019-01-05] MEDS ORDERED: METHADONE HCL 10 MG TABLET (FOR DETOX USE ONLY) PO ONE ×2 (21:30→23:00)
[2019-01-05] MEDS: THIAMINE HCL 100 MG TABLET (FP) PO SCH (21:53)
[2019-01-05] MEDS ORDERED: MELATONIN 5 MG TABLETS PO PRN (22:00)
[2019-01-05] MEDS: diazePAM 5 MG TABLET PO SCH (22:50)
[2019-01-06 00:04] LABS: URINE APPEARANCE SLCLOUDY; URINE BILIRUBIN NEGATIVE (<2.0 mg/dL); URINE COLOR AMBER; URINE GLUCOSE (UA) NEGATIVE (NEGATIVE); URINE KETONE NEGATIVE (NEGATIVE); URINE LEUK ESTERASE NEGATIVE (NEGATIVE); URINE NITRITE NEGATIVE (NEGATIVE); URINE PROTEIN NEGATIVE (NEGATIVE); URINE UROBILINOGEN 4.0 E.U/dl mg/dL (0.2-1.0)
[2019-01-06] MEDS: diazePAM 5 MG TABLET PO SCH ×3 (06:54→22:28)
[2019-01-06] MEDS: diazePAM 5 MG TABLET PO PRN ×3 (07:48→18:08)
--- NOTE | 2019-01-06 09:14 | PN ---
S CIWA - CIWA Score Nausea/Vomitin Muscle Tremors: 2 Anxiety: 2 Agitation: 2 Paroxysmal Sweats: 1-Minimal Palms Moist Orientation: 0-Oriented Tacttile Disturbances: 1-Very Mild Itch/Numbness Auditory Disturbances: 1-Very Mild Visual Disturbances: 0-None Headache: 2-Mild CIWA-Ar Total Score: 13 BHS COWS - Scale Resting Pulse: 0= [place] 80 or Below Sweatin= Chills/Flushing Restless Observation: 3= Extraneous Movement Pupil Size: 1= Pupils >than Normal Bone or Joint Aches: 2= Severe Diffuse Aches Runny Nose/ Eye Tearin= Nasal Congestion GI Upset > 30mins: 2= Nausea/Diarrhea Tremor Observation of Outstretched Hands: 2= Slight Tremor Visible Yawning Observation: 1= 1-2x During Session Anxiety or Irritability: 2=Irritable/Anxious Goose Flesh Skin: 0=Smooth Skin COWS Score: 15 BHS Progress Note (SOAP) Subjective: alert,irritable,anxious,interrupted sleep,pain in the body and back Objective: 01/06/19 09:13 Vital Signs Temperature 97.5 F L 01/05/19 18:34 Pulse Rate 77 01/05/19 18:34 Respiratory Rate 18 01/06/19 03:23 Blood Pressure 100/58 L 01/05/19 18:34 O2 Sat by Pulse Oximetry (%) Laboratory Last Values Urine Color Yue 01/05/19 23:05 Urine Appearance Slcloudy 01/05/19 23:05 Urine pH 5.0 (5.0-8.0) 01/05/19 23:05 Ur Specific [place] 1.025 (1.010-1.035) 01/05/19 23:05 Urine Protein Negative (NEGATIVE) 01/05/19 23:05 Urine Glucose (UA) Negative (NEGATIVE) 01/05/19 23:05 Urine Ketones Negative (NEGATIVE) 01/05/19 23:05 Urine Blood Negative (NEGATIVE) 01/05/19 23:05 Urine Nitrite Negative (NEGATIVE) 01/05/19 23:05 Urine Bilirubin Negative (<2.0 mg/dL) 01/05/19 23:05 Urine Urobilinogen 4.0 e.u/dl mg/dL (0.2-1.0) 01/05/19 23:05 Ur Leukocyte Esterase Negative (NEGATIVE) 01/05/19 23:05 labs pending Assessment: 01/06/19 09:14 withdrawal symptom Plan: continue detox
[2019-01-06] MEDS ORDERED: METHADONE HCL 10 MG TABLET (FOR DETOX USE ONLY) PO SCH (10:00)
[2019-01-06] MEDS: NICOTINE 21 MG/24 HOURS TOPICAL PATCH TD SCH (10:41)
[2019-01-06] MEDS: PRENATAL VITAMINS W/ FOLIC ACID TABLET (FP) PO SCH (10:41)
[2019-01-06] MEDS: cloNIDine HCL 0.1 MG TABLET PO SCH ×2 (10:42→22:28)
[2019-01-06] MEDS: CYCLOBENZAPRINE HCL 10 MG TABLET (FP) PO PRN ×2 (10:42→20:24)
[2019-01-06 10:50] LABS: HEMATOCRIT 39.5 % (35.4-49); HEMOGLOBIN 13.6 GM/dL (11.7-16.9); MCH 31.5 pg (25.7-33.7); MCHC 34.4 g/dl (32.0-35.9); MEAN CELL VOLUME 91.6 fl (80-96); MEAN PLT VOLUME 9.4 fl (7.5-11.1); PLATELET COUNT 196 K/MM3 (134-434); RBC 4.32 M/mm3 (4.00-5.60); RDW 14.1 % (11.9-15.9)
[2019-01-06 11:01] LABS: ALBUMIN 3.4 g/dl (3.4-5.0); ALK PHOS 104 U/L (45-117); ANION GAP 4 MMOL/L (8-16); BILIRUBIN,TOTAL 0.4 mg/dL (0.2-1); BLOOD UREA NITROGEN 11 mg/dL (7-18); CALCIUM 8.8 mg/dL (8.5-10.1); CHLORIDE 106 mmol/L (98-107); CO2 30 mmol/L (21-32); CREATININE 0.7 mg/dL (0.55-1.3); GLUCOSE,RANDOM 89 mg/dL (74-106); SGOT/AST 109 U/L (15-37); SGPT/ALT 258 U/L (13-61); SODIUM 139 mmol/L (136-145); TOT PROT 6.2 g/dl (6.4-8.2)
--- NOTE | 2019-01-06 12:37 | PN ---
S Progress Note Note: Psychiatric nurse practitioner note: Head And Neck Surgeon approached patient in the morning and again after lunch for psychiatric consultation. Patient refusing to speak to life underwriter. Stated, " I am too tired and i dont need to speak to a psychiatrist." Nursing staff informed.
--- NOTE | 2019-01-06 18:49 | CONSULT ---
[facility] Psychiatric Consult - Data Date of interview: 01/06/19 Admission source: [facility] Identifying data: Barge Loader approached patient in the morning and again after lunch for psychiatric consultation. Patient refusing to speak to typewriters functional tester. Stated , " I am too tired and i dont need to speak to a psychiatrist." Nursing staff informed.
[2019-01-06] MEDS: THIAMINE HCL 100 MG TABLET (FP) PO SCH (22:29)
[2019-01-07] MEDS: diazePAM 5 MG TABLET PO PRN ×3 (05:58→16:39)
[2019-01-07] MEDS ORDERED: diazePAM 5 MG TABLET PO SCH (10:00)
[2019-01-07] MEDS ORDERED: METHADONE HCL 5 MG TABLET (FOR DETOX USE ONLY) PO SCH (10:00)
[2019-01-07] MEDS: NICOTINE 21 MG/24 HOURS TOPICAL PATCH TD SCH (10:05)
[2019-01-07] MEDS: cloNIDine HCL 0.1 MG TABLET PO SCH (10:07)
[2019-01-07] MEDS: PRENATAL VITAMINS W/ FOLIC ACID TABLET (FP) PO SCH (10:07)
--- NOTE | 2019-01-07 13:42 | PN ---
[facility] CIWA - CIWA Score Nausea/Vomitin-No Nausea/No Vomiting Muscle Tremors: 4-Moderate,w/Arms Extend Anxiety: 3 Agitation: 4-Moderately Restless Paroxysmal Sweats: 3 Orientation: 0-Oriented Tacttile Disturbances: 0-None Auditory Disturbances: 0-None Visual Disturbances: 0-None Headache: 0-None Present CIWA-Ar Total Score: 14 S COWS - Scale Resting Pulse: 0= [place] 80 or Below Sweatin=Flushed/Facial Moisture Restless Observation: 3= Extraneous Movement Pupil Size: 0= Normal to Room Light Bone or Joint Aches: 1= Mild Discomfort Runny Nose/ Eye Tearin= Nasal Congestion GI Upset > 30mins: 0= None Tremor Observation of Outstretched Hands: 2= Slight Tremor Visible Yawning Observation: 1= 1-2x During Session Anxiety or Irritability: 2=Irritable/Anxious Goose Flesh Skin: 0=Smooth Skin COWS Score: 12 S Progress Note (SOAP) Subjective: Anxious sweats shakes sleep disturbance Objective: 01/07/19 13:48 A & O x 3 Ambulatory with steady gait Anxious, restless no acute distress noted Vital Signs Temperature 97 F L 01/07/19 09:25 Pulse Rate 54 L 01/07/19 09:25 Respiratory Rate 16 01/07/19 09:25 Blood Pressure 113/50 L 01/07/19 09:25 O2 Sat by Pulse Oximetry (%) Low HR noted - denies any cardiac related complaint Laboratory Last Values WBC 6.0 K/mm3 (4.0-10.0) 01/06/19 07:00 RBC 4.32 M/mm3 (4.00-5.60) 01/06/19 07:00 Hgb 13.6 GM/dL (11.7-16.9) 01/06/19 07:00 Hct 39.5 % (35.4-49) 01/06/19 07:00 MCV 91.6 fl (80-96) 01/06/19 07:00 MCH 31.5 pg (25.7-33.7) 01/06/19 07:00 MCHC 34.4 g/dl (32.0-35.9) 01/06/19 07:00 RDW 14.1 % (11.9-15.9) 01/06/19 07:00 Plt Count 196 K/MM3 (134-434) 01/06/19 07:00 MPV 9.4 fl (7.5-11.1) 01/06/19 07:00 Sodium 139 mmol/L (136-145) 01/06/19 07:00 Potassium 4.0 mmol/L (3.5-5.1) 01/06/19 07:00 Chloride 106 mmol/L (98-107) 01/06/19 07:00 Carbon Dioxide 30 mmol/L (21-32) 01/06/19 07:00 Anion Gap 4 MMOL/L (8-16) L 01/06/19 07:00 BUN 11 mg/dL (7-18) 01/06/19 07:00 Creatinine 0.7 mg/dL (0.55-1.3) 01/06/19 07:00 Creat Clearance w eGFR > 60 (>60) 01/06/19 07:00 Random Glucose 89 mg/dL (74-106) 01/06/19 07:00 Calcium 8.8 mg/dL (8.5-10.1) 01/06/19 07:00 Total Bilirubin 0.4 mg/dL (0.2-1) 01/06/19 07:00 AST 109 U/L (15-37) H 01/06/19 07:00 ALT 258 U/L (13-61) H 01/06/19 07:00 Alkaline Phosphatase 104 U/L (45-117) 01/06/19 07:00 Total Protein 6.2 g/dl (6.4-8.2) L 01/06/19 07:00 Albumin 3.4 g/dl (3.4-5.0) 01/06/19 07:00 Urine Color Yue 01/05/19 23:05 Urine Appearance Slcloudy 01/05/19 23:05 Urine pH 5.0 (5.0-8.0) 01/05/19 23:05 Ur Specific [place] 1.025 (1.010-1.035) 01/05/19 23:05 Urine Protein Negative (NEGATIVE) 01/05/19 23:05 Urine Glucose (UA) Negative (NEGATIVE) 01/05/19 23:05 Urine Ketones Negative (NEGATIVE) 01/05/19 23:05 Urine Blood Negative (NEGATIVE) 01/05/19 23:05 Urine Nitrite Negative (NEGATIVE) 01/05/19 23:05 Urine Bilirubin Negative (<2.0 mg/dL) 01/05/19 23:05 Urine Urobilinogen 4.0 e.u/dl mg/dL (0.2-1.0) 01/05/19 23:05 Ur Leukocyte Esterase Negative (NEGATIVE) 01/05/19 23:05 RPR Titer Nonreactive (NONREACTIVE) 01/06/19 07:00 labs noted Assessment: 01/07/19 13:50 withdrawal sx Plan: continue detox continue increased hydration
[2019-01-07 13:50] VITALS: BP 101/51; PULSE 53; TEMP 97.7
--- NOTE | 2019-01-07 17:16 | PN ---
[facility] Progress Note Note: patient did not want to complete treatment,all convince by counselors,nurses and myself with no avail, risk of relapsing is high,advise to go to nearest emergency room if any problem, left the facility in stable condition
--- NOTE | 2019-01-07 17:22 | DS ---
[facility] Detox Discharge Summary Admission Date: 01/05/19 Discharge Date: 01/07/19 - History Present History: Opioid Dependence, Sedative Dependence Additional Comments: patient signed release ama,all attempts to convince patient to stay with no avail,risks of relapsing is high,patient understood,advise to go to nearest emergency room if emergency problem - Physical Exam Results Vital Signs: Vital Signs Temperature 97.7 F 01/07/19 13:49 Pulse Rate 53 L 01/07/19 13:49 Respiratory Rate 16 01/07/19 13:49 Blood Pressure 101/51 L 01/07/19 13:49 O2 Sat by Pulse Oximetry (%) Pertinent Admission Physical Exam Findings: withdrawal signs and symptom Laboratory Last Values WBC 6.0 K/mm3 (4.0-10.0) 01/06/19 07:00 RBC 4.32 M/mm3 (4.00-5.60) 01/06/19 07:00 Hgb 13.6 GM/dL (11.7-16.9) 01/06/19 07:00 Hct 39.5 % (35.4-49) 01/06/19 07:00 MCV 91.6 fl (80-96) 01/06/19 07:00 MCH 31.5 pg (25.7-33.7) 01/06/19 07:00 MCHC 34.4 g/dl (32.0-35.9) 01/06/19 07:00 RDW 14.1 % (11.9-15.9) 01/06/19 07:00 Plt Count 196 K/MM3 (134-434) 01/06/19 07:00 MPV 9.4 fl (7.5-11.1) 01/06/19 07:00 Sodium 139 mmol/L (136-145) 01/06/19 07:00 Potassium 4.0 mmol/L (3.5-5.1) 01/06/19 07:00 Chloride 106 mmol/L (98-107) 01/06/19 07:00 Carbon Dioxide 30 mmol/L (21-32) 01/06/19 07:00 Anion Gap 4 MMOL/L (8-16) L 01/06/19 07:00 BUN 11 mg/dL (7-18) 01/06/19 07:00 Creatinine 0.7 mg/dL (0.55-1.3) 01/06/19 07:00 Creat Clearance w eGFR > 60 (>60) 01/06/19 07:00 Random Glucose 89 mg/dL (74-106) 01/06/19 07:00 Calcium 8.8 mg/dL (8.5-10.1) 01/06/19 07:00 Total Bilirubin 0.4 mg/dL (0.2-1) 01/06/19 07:00 AST 109 U/L (15-37) H 01/06/19 07:00 ALT 258 U/L (13-61) H 01/06/19 07:00 Alkaline Phosphatase 104 U/L (45-117) 01/06/19 07:00 Total Protein 6.2 g/dl (6.4-8.2) L 01/06/19 07:00 Albumin 3.4 g/dl (3.4-5.0) 01/06/19 07:00 Urine Color Yue 01/05/19 23:05 Urine Appearance Slcloudy 01/05/19 23:05 Urine pH 5.0 (5.0-8.0) 01/05/19 23:05 Ur Specific [place] 1.025 (1.010-1.035) 01/05/19 23:05 Urine Protein Negative (NEGATIVE) 01/05/19 23:05 Urine Glucose (UA) Negative (NEGATIVE) 01/05/19 23:05 Urine Ketones Negative (NEGATIVE) 01/05/19 23:05 Urine Blood Negative (NEGATIVE) 01/05/19 23:05 Urine Nitrite Negative (NEGATIVE) 01/05/19 23:05 Urine Bilirubin Negative (<2.0 mg/dL) 01/05/19 23:05 Urine Urobilinogen 4.0 e.u/dl mg/dL (0.2-1.0) 01/05/19 23:05 Ur Leukocyte Esterase Negative (NEGATIVE) 01/05/19 23:05 RPR Titer Nonreactive (NONREACTIVE) 01/06/19 07:00 - Medication Discharge Medications: Ambulatory Orders NK [No Known Home Medication] 05/04/18 - AMA Did Patient Leave Against Medical Advice: Yes
[2019-01-09] MEDS ORDERED: METHADONE HCL 10 MG TABLET (FOR DETOX USE ONLY) PO SCH (10:00)
[2019-01-09] MEDS ORDERED: diazePAM 5 MG TABLET PO SCH (10:00)
[2019-01-10] MEDS ORDERED: METHADONE HCL 5 MG TABLET (FOR DETOX USE ONLY) PO SCH (06:00)
== END 2019-01-07 16:58 | disposition left against medical advice (07) | DRG 770 ==
LOC: YASAS 18:19 → Y6N 21:11
PROVIDERS: ADMIT Surgery; ATTEND Surgery
PROC: HZ2ZZZZ Detoxification Services for Substance Abuse Treatment (ICD-10-PCS; principal; 2019-01-05)
DX: F11.23 Opioid dependence with withdrawal (principal); F13.230 Sedative, hypnotic or anxiolytic dependence with withdrawal, uncomplicated; F17.213 Nicotine dependence, cigarettes, with withdrawal; Z86.69 Personal history of other diseases of the nervous system and sense organs; Z88.1 Allergy status to other antibiotic agents
CPT/HCPCS: 36415; 80053; 81003; 85027; 86593; J0735

== ENCOUNTER 2019-01-26 09:46 | Inpatient (IN) | payer OTHER ==
[2019-01-26 10:06] VITALS: BMI 18.4
--- NOTE | 2019-01-26 12:14 | HP ---
COWS - Scale Resting Pulse: 0= [place] 80 or Below Sweatin= Chills/Flushing Restless Observation: 1= Difficult to Sit Still Pupil Size: 0= Normal to Room Light Bone or Joint Aches: 4=Acute Joint/Muscle Pain Runny Nose/ Eye Tearin= Nasal Congestion GI Upset > 30mins: 1= Stomach Cramp Tremor Observation: 0= None Yawning Observation: 0= None Anxiety or Irritability: 2=Irritable/Anxious Goose Flesh Skin: 0=Smooth Skin COWS Score: 10 CIWA Score Nausea/Vomitin-No Nausea/No Vomiting (" you just asked me that ") Muscle Tremors: None Anxiety: 4-Mod. Anxious/Guarded Agitation: 1-Slight > Activity Paroxysmal Sweats: 2 Orientation: 0-Oriented Tacttile Disturbances: 0-None Auditory Disturbances: 0-None Visual Disturbances: 3-Moderate Sensitivity Headache: 3-Moderate CIWA-Ar Total Score: 13 - Admission Criteria [facility] Guidelines: Admission for Medically Managed Detox: Requires at least one of the followin. CIWA greater than 12 2. Seizures within the past 24 hours 3. Delirium tremens within the past 24 hours 4. Hallucinations within the past 24 hours 5. Acute intervention needed for co occurring medical disorder 6. Acute intervention needed for co occurring psychiatric disorder 7. Severe withdrawal that cannot be handled at a lower level of care (continued vomiting, continued diarrhea, abnormal vital signs) requiring intravenous medication and/or fluids 8. Admission ROS [facility] Allergies/Adverse Reactions: Allergies Allergy/AdvReac Type Severity Reaction Status Date / Time vancomycin Allergy Intermediate Rash Verified 01/26/19 10:31 chlordiazepoxide AdvReac Verified 01/26/19 10:31 [From Librium] librium AdvReac Uncoded 01/26/19 10:31 History of Present Illness: Search Terms: niall castañeda, 1990 Search Date: 01/26/2019 12:06:55 PM The Drug Utilization Report below displays all of the controlled substance prescriptions, if any, that your patient has filled in the last twelve months. The information displayed on this report is compiled from pharmacy submissions to the Department, and accurately reflects the information as submitted by the pharmacies. This report was requested by: Debi Hatfield | Reference #: [id number] Others' Prescriptions Patient Name: Niall Castañeda Date: 1990 Address: [address] [place] [address] Sex: Male Rx Written Rx Dispensed Drug Quantity Days Supply Prescriber Name 01/24/2019 01/24/2019 buprenorphine-naloxone 8-2 mg sl film 24 8 Kuldip Fitch MD Patient Name: Niall Castañeda Date: 1990 Address: [address] [place] [address] Sex: Male Rx Written Rx Dispensed Drug Quantity Days Supply Prescriber Name 01/11/2019 01/11/2019 buprenorphine-naloxone 8-2 mg sl film 9 3 Laks, David LLAMAS 01/11/2019 01/11/2019 chlordiazepoxide 10 mg capsule 36 4 Laks, David LLAMAS 12/12/2018 12/12/2018 suboxone 8 mg-2 mg sl film 9 3 Laks, David LLAMAS 12/12/2018 12/12/2018 chlordiazepoxide 10 mg capsule 36 4 Laks, David LLAMAS 11/16/2018 11/16/2018 suboxone 8 mg-2 mg sl film 9 3 Laks, David LLAMAS 11/16/2018 11/16/2018 chlordiazepoxide 10 mg capsule 36 4 Laks, David LLAMAS Patient Name: Niall Castañeda Date: 1990 Address: [address] [place] [id number] Sex: Male Rx Written Rx Dispensed Drug Quantity Days Supply Prescriber Name 10/22/2018 10/29/2018 lorazepam 1 mg tablet 20 3 Priscilla Case) 10/26/2018 10/29/2018 lorazepam 1 mg tablet 6 3 Adri Babb MD 10/26/2018 10/29/2018 suboxone 8 mg-2 mg sl film 30 10 Adri Babb MD 10/28/2018 10/29/2018 lorazepam 1 mg tablet 5 3 Adri aBbb MD Patient Name: Niall Castañeda Date: 1990 Address: [address] [place] [id number] Sex: Male Rx Written Rx Dispensed Drug Quantity Days Supply Prescriber Name 10/17/2018 10/20/2018 suboxone 8 mg-2 mg sl film 30 10 Caryl Parkinsona 10/04/2018 10/04/2018 suboxone 8 mg-2 mg sl film 42 14 Bremer, Funmilayo L 09/20/2018 09/20/2018 suboxone 8 mg-2 mg sl film 42 14 Bremer, Funmilayo L 09/06/2018 09/06/2018 suboxone 8 mg-2 mg sl film 42 14 Bremer, Funmilayo L 08/22/2018 08/23/2018 suboxone 8 mg-2 mg sl film 42 14 Bremer, Funmilayo L 08/08/2018 08/08/2018 suboxone 8 mg-2 mg sl film 42 14 Bremer, Funmilayo L 08/01/2018 08/02/2018 suboxone 8 mg-2 mg sl film 21 7 Bremer , Funmilayo L 07/25/2018 07/26/2018 suboxone 8 mg-2 mg sl film 21 7 Bremer , Funmilayo L Patient Name: Niall Castañeda Date: 1990 Address: [address] [place] [address] Sex: Male Rx Written Rx Dispensed Drug Quantity Days Supply Prescriber Name 07/12/2018 07/14/2018 suboxone 8 mg-2 mg sl film 30 10 Debi Murcia 07/04/2018 07/04/2018 suboxone 8 mg-2 mg sl film 30 10 Adri Babb MD 06/06/2018 07/02/2018 chlordiazepoxide 10 mg capsule 4 2 Adri Babb MD 06/13/2018 06/28/2018 suboxone 8 mg-2 mg sl film 30 10 Adri Babb MD 06/24/2018 06/28/2018 suboxone 8 mg-2 mg sl film 30 10 Adri Babb MD 06/03/2018 06/06/2018 suboxone 8 mg-2 mg sl film 30 10 Adri Babb MD 06/03/2018 06/04/2018 chlordiazepoxide 10 mg capsule 10 4 Adri Babb MD Patient Name: Niall aCstañeda Date: 1990 Address: [place] [address] Sex: Male Rx Written Rx Dispensed Drug Quantity Days Supply Prescriber Name 03/24/2018 03/29/2018 suboxone 2 mg-0.5 mg sl film 3 1 Lazaro Mcnulty MD 03/24/2018 03/24/2018 suboxone 8 mg-2 mg sl film 30 30 Lazaro Mcnulty MD * - Drugs marked with an asterisk are compound drugs. If the compound drug is made up of more than one controlled substance, then each controlled utox + thc , pina , fen , opi , mtd , bzo , bup pt denies use of buprenorphine despite above rx and claims took SUboxone 1 week ago / Pt is very uncooperative during interview , combative and verbally aggressive towards board writer. cannabis : occasional use cocaine : occasional use fentanyl : denies heroin : 8 bags IVDU in [facility] , needles form the exchange , denies sharing , + re-using , denies abscess , denies OD , prior MMTP 2 years ago in [facility] mg reports taper " I didn't want it, worst thing in my life " , on Suboxone x 1 year reports non- compliance w/ meds, claims current rx at his mother's house , latest use yesterday 6 p.m. methadone : illicit use , claims 40 mg 4 days ago . benzo : " I already told fay that " - declines to answer further questions regarding use . etoh : 3 pints /day x years " doesn't matter " , latest use last evening , denies seizures , " doesn't matter what time I start drinking " PMhx : denies PSHx : denies Meds ; denies Exam Limitations: Clinical Condition - Ebola screening Have you traveled outside of the country in the last 21 days: No Have you had contact with anyone from an Ebola affected area: No Have you been sick,other than usual withdrawal symptoms: No Do you have a fever: No - Review of Systems Constitutional: See HPI EENT: reports: See HPI, Other (denies vision loss) Respiratory: reports: No Symptoms reported Cardiac: reports: No Symptoms Reported GI: reports: See HPI : reports: No Symptoms Reported Musculoskeletal: reports: See HPI Integumentary: reports: See HPI Neuro: reports: Headache Endocrine: reports: No Symptoms Reported Psychiatric: reports: Orientated x3, Agitated, Anxious Patient History - Patient Medical History Hx Anemia: No Hx Asthma: No Hx Chronic Obstructive Pulmonary Disease (COPD): No Hx Cancer: No Hx Cardiac Disorders: No Hx Congestive Heart Failure: No Hx Hypertension: No Hx Hypercholesterolemia: No Hx Pacemaker: No HX Cerebrovascular Accident: No Hx Seizures: No Hx Dementia: No Hx Diabetes: No Hx Gastrointestinal Disorders: No Hx Liver Disease: No Hx Genitourinary Disorders: No Hx Sexually Transmitted Disorders: No Hx Renal Disease (ESRD): No Hx Thyroid Disease: No Hx Human Immunodeficiency Virus (HIV): No (last 11/04 negative) Hx Hepatitis C: No Hx Depression: Yes (AND ANXIETY) Hx Suicide Attempt: No (denies) Hx Bipolar Disorder: No Hx Schizophrenia: No - Patient Surgical History Past Surgical History: Yes Hx Neurologic Surgery: No Hx Cataract Extraction: No Hx Cardiac Surgery: No Hx Lung Surgery: No Hx Breast Surgery: No Hx Breast Biopsy: No Hx Abdominal Surgery: Yes (LEFT INGUINAL HERNIA REPAIR 1990) Hx Appendectomy: No Hx Cholecystectomy: No Hx Genitourinary Surgery: No Hx Section: No Hx Orthopedic Surgery: No Other Surgical History: left inguinal hernia repair 1990 Anesthesia Reaction: No - PPD History Date: 11/14/18 Results: no reading - Reproductive History Patient : No - Smoking Cessation Smoking history: Current every day smoker Have you smoked in the past 12 months: Yes Aproximately how many cigarettes per day: 20 Cigars Per Day: 0 Hx Chewing Tobacco Use: No Initiated information on smoking cessation: No - Substances Abused Heroin Route: Injection Frequency: Daily Amount used: 7 bags Age of first use: 23 Date of Last Use: 01/25/19 Alprazolam (Xanax) Route: Oral Frequency: Daily Amount used: 10mg Age of first use: 16 Date of Last Use: 01/26/19 Alcohol Route: Oral Frequency: Daily Amount used: 2 pints vodka Age of first use: 15 Date of Last Use: 01/25/19 Family Disease History - Family Disease History Family Disease History: Heart Disease: Grandparent (), Other: Father, Mother (thyroid), Brother (/OD) Admission Physical Exam BHS - Vital Signs Vital Signs: Vital Signs - 24 hr 01/26/19 10:04 Temperature 97.6 F Pulse Rate 47 L Respiratory 18 Rate Blood Pressure 95/55 L - Physical General Appearance: Yes: Mild Distress, Cachetic, Thin, Irritable, Anxious HEENTM: Yes: EOMI, Hearing grossly Normal, Normocephalic, Normal Voice, Other ( upper dentures) Respiratory: Yes: Chest Non-Tender, Lungs Clear Neck: Yes: No masses,lesions,Nodules, Trachea in good position Cardiology: Yes: Regular Rhythm, Regular Rate, S1, S2, Bradycardia Abdominal: Yes: Non Tender, Flat, Soft, Other (scaphoid) Musculoskeletal: Yes: full range of Motion, Gait Steady Neurological: Yes: Fully Oriented, Alert, Motor Strength 5/5 Integumentary: Yes: Normal Color - Diagnostic (1) Nicotine dependence Current Visit: Yes Status: Chronic Qualifiers: Nicotine product type: cigarettes (2) Opioid dependence with withdrawal Current Visit: Yes Status: Acute (3) Sedative abuse Current Visit: No Status: Acute (4) Alcohol dependence Current Visit: Yes Status: Acute Qualifiers: Substance use status: in withdrawal (5) Cannabis dependence Current Visit: Yes Status: Chronic (6) Cocaine dependence Current Visit: Yes Status: Chronic Qualifiers: Substance use status: uncomplicated Qualified Code(s): F14.20 - Cocaine dependence, uncomplicated BHS Breath Alcohol Content Breath Alcohol Content: 0 Urine Drug Screen - Results Drug Screen Negative: No Urine Drug Screen Results: THC-Marijuana, PINA-Cocaine, OPI-Opiates, BZO- Benzodiazepines, MTD-Methadone, FEN-Fentanyl, BUP-Suboxone Inpatient Rehab Admission - Rehab Decision to Admit Inpatient rehab admission?: No
[2019-01-26] MEDS ORDERED: MAGNESIUM CITRATE 300 ML BOTTLE PO PRN (12:22)
[2019-01-26] MEDS ORDERED: MAG HYDROX/AL HYDROX/SIMETH 30 ML UNIT-DOSE CUP PO PRN (12:22)
[2019-01-26] MEDS ORDERED: IBUPROFEN 400 MG TABLET (FP) PO PRN (12:22)
[2019-01-26] MEDS ORDERED: MENTHOL/PHENOL 1 EACH UD MM PRN (12:22)
[2019-01-26] MEDS ORDERED: ACETAMINOPHEN 325 MG TABLET (FP) PO PRN ×2 (12:22)
[2019-01-26] MEDS ORDERED: MAGNESIUM HYDROX 2400MG/30ML ORAL SUSPENSION 30 ML CUP PO PRN (12:22)
[2019-01-26] MEDS ORDERED: NALOXONE HCL 0.4 MG/ML VIAL IVPUSH PRN (12:22)
[2019-01-26] MEDS ORDERED: BISMUTH SUBSALICYLATE 524 MG/30 ML UD PO PRN (12:22)
[2019-01-26] MEDS ORDERED: NICOTINE POLACRILEX 2 MG GUM BUC PRN (12:22)
[2019-01-26] MEDS ORDERED: diazePAM 5 MG TABLET PO PRN (12:22)
[2019-01-26] MEDS: diazePAM 5 MG TABLET PO SCH ×2 (14:16→22:34)
[2019-01-26] MEDS ORDERED: METHADONE HCL 10 MG TABLET (FOR DETOX USE ONLY) PO ONE ×2 (19:45→23:00)
[2019-01-26] MEDS: THIAMINE HCL 100 MG TABLET (FP) PO SCH (22:06)
[2019-01-26] MEDS: MELATONIN 5 MG TABLETS PO PRN (22:06)
[2019-01-26] MEDS: diazePAM 5 MG TABLET PO PRN (22:07)
[2019-01-27] MEDS: diazePAM 5 MG TABLET PO PRN ×4 (04:10→23:27)
[2019-01-27] MEDS: diazePAM 5 MG TABLET PO SCH ×3 (06:59→21:14)
[2019-01-27] MEDS ORDERED: METHADONE HCL 5 MG TABLET (FOR DETOX USE ONLY) PO ONE (10:00)
--- NOTE | 2019-01-27 10:52 | EKG ---
Test Reason : Blood Pressure : / mmHG Vent. Rate : 042 BPM Atrial Rate : 042 BPM P-R Int : 194 ms QRS Dur : 104 ms QT Int : 506 ms P-R-T Axes : 050 065 053 degrees QTc Int : 422 ms MARKED SINUS BRADYCARDIA MINIMAL VOLTAGE CRITERIA FOR LVH, MAY BE NORMAL VARIANT EARLY REPOLARIZATION ABNORMAL ECG Confirmed by RAN CALLAWAY MD ([id number]) on 01/27/2019 10:51:41 AM Referred By: Confirmed By:RAN CALLAWAY MD
--- NOTE | 2019-01-27 10:57 | PN ---
BHS Progress Note Note: patient is doing heroin iv 10 bags/day,withdrawal symptom,will choose regimen for severe opiate regimen
--- NOTE | 2019-01-27 11:07 | PN ---
S CIWA - CIWA Score Nausea/Vomitin Muscle Tremors: 2 Anxiety: 2 Agitation: 2 Paroxysmal Sweats: 1-Minimal Palms Moist Orientation: 0-Oriented Tacttile Disturbances: 1-Very Mild Itch/Numbness Auditory Disturbances: 1-Very Mild Visual Disturbances: 0-None Headache: 2-Mild CIWA-Ar Total Score: 13 BHS COWS - Scale Resting Pulse: 0= [place] 80 or Below Sweatin= Chills/Flushing Restless Observation: 3= Extraneous Movement Pupil Size: 1= Pupils >than Normal Bone or Joint Aches: 2= Severe Diffuse Aches Runny Nose/ Eye Tearin= Runny Nose/Eyes GI Upset > 30mins: 2= Nausea/Diarrhea Tremor Observation of Outstretched Hands: 2= Slight Tremor Visible Yawning Observation: 1= 1-2x During Session Anxiety or Irritability: 2=Irritable/Anxious Goose Flesh Skin: 0=Smooth Skin COWS Score: 16 S Progress Note (SOAP) Subjective: alert,irritable,anxious,interrupted sleep,tremor,abdominal cramp Objective: 01/27/19 11:05 Vital Signs Temperature 97.3 F L 01/27/19 06:00 Pulse Rate 59 L 01/27/19 06:00 Respiratory Rate 16 01/27/19 06:00 Blood Pressure 96/44 L 01/27/19 06:00 O2 Sat by Pulse Oximetry (%) 01/27/19 11:06 labs pending Assessment: 01/27/19 11:06 withdrawal symptom Plan: continue detox,severe withdrawal ,will change regimen to severe withdrawal
[2019-01-27] MEDS ORDERED: cloNIDine HCL 0.1 MG TABLET PO PRN (11:10)
[2019-01-27 11:19] LABS: HEMATOCRIT 39.6 % (35.4-49); HEMOGLOBIN 13.7 GM/dL (11.7-16.9); MCHC 34.6 g/dl (32.0-35.9); MEAN CELL VOLUME 92.6 fl (80-96); MEAN PLT VOLUME 9.7 fl (7.5-11.1); PLATELET COUNT 200 K/MM3 (134-434); RBC 4.27 M/mm3 (4.00-5.60); RDW 14.5 % (11.9-15.9); WHITE BLOOD COUNT 6.6 K/mm3 (4.0-10.0)
[2019-01-27] MEDS: PRENATAL VITAMINS W/ FOLIC ACID TABLET (FP) PO SCH (11:43)
[2019-01-27] MEDS ORDERED: METHADONE HCL 10 MG TABLET (FOR DETOX USE ONLY) PO ONE ×2 (11:45→23:00)
[2019-01-27 11:58] LABS: ALK PHOS 87 U/L (45-117); ANION GAP 4 MMOL/L (8-16); BILIRUBIN,TOTAL 0.4 mg/dL (0.2-1); BLOOD UREA NITROGEN 19 mg/dL (7-18); CALCIUM 9.3 mg/dL (8.5-10.1); CHLORIDE 100 mmol/L (98-107); CO2 29 mmol/L (21-32); CREATININE 0.8 mg/dL (0.55-1.3); GLUCOSE,RANDOM 106 mg/dL (74-106); POTASSIUM 4.2 mmol/L (3.5-5.1); SGOT/AST 56 U/L (15-37); SGPT/ALT 101 U/L (13-61); SODIUM 134 mmol/L (136-145); TOT PROT 7.1 g/dl (6.4-8.2)
[2019-01-27] MEDS ORDERED: NICOTINE POLACRILEX 2 MG GUM BC PRN (12:00)
[2019-01-27] MEDS: NICOTINE 21 MG/24 HOURS TOPICAL PATCH TD SCH (12:12)
[2019-01-27] MEDS: METHOCARBAMOL 500 MG TABLET PO SCH ×2 (17:12→21:11)
[2019-01-27] MEDS: MELATONIN 5 MG TABLETS PO PRN (21:10)
[2019-01-27] MEDS: THIAMINE HCL 100 MG TABLET (FP) PO SCH (21:10)
[2019-01-28] MEDS: diazePAM 5 MG TABLET PO PRN ×2 (04:13→09:01)
[2019-01-28] MEDS ORDERED: diazePAM 5 MG TABLET PO ONE (06:00)
[2019-01-28 09:26] VITALS: BP 109/69; PULSE 60; TEMP 98
[2019-01-28] MEDS ORDERED: METHADONE HCL 10 MG TABLET (FOR DETOX USE ONLY) PO ONE ×2 (10:00)
[2019-01-28] MEDS: PRENATAL VITAMINS W/ FOLIC ACID TABLET (FP) PO SCH (10:19)
[2019-01-28] MEDS: METHOCARBAMOL 500 MG TABLET PO SCH (10:20)
[2019-01-28] MEDS: NICOTINE 21 MG/24 HOURS TOPICAL PATCH TD SCH (10:20)
--- NOTE | 2019-01-28 15:49 | DS ---
[facility] Detox Discharge Summary Admission Date: 01/26/19 Discharge Date: 01/28/19 - History Additional Comments: Pt insisting on leaving the unit. When asked why he wanted to leave this quickly, he said he would go to where "they will give me what I want" when asked what he wants, he declined to say. He insisted on leaving despite reated requests to see what/how I can do to help him He was agitated but in no acute nor respiratory distress, He was not having untoward withdrawal sx. Pt was A & O x 3, gait was steady. He denied SI nor HI. He denied any home meds. He will be discharged AMA - Physical Exam Results Vital Signs: Vital Signs Temperature 98.0 F 01/28/19 09:26 Pulse Rate 60 01/28/19 09:26 Respiratory Rate 18 01/28/19 09:26 Blood Pressure 109/69 01/28/19 09:26 O2 Sat by Pulse Oximetry (%) - Medication Discharge Medications: Ambulatory Orders NK [No Known Home Medication] 05/04/18 - AMA Did Patient Leave Against Medical Advice: Yes
[2019-01-29] MEDS ORDERED: METHADONE HCL 5 MG TABLET (FOR DETOX USE ONLY) PO ONE (06:00)
[2019-01-29] MEDS ORDERED: METHADONE HCL 10 MG TABLET (FOR DETOX USE ONLY) PO ONE ×2 (10:00)
[2019-01-30] MEDS ORDERED: METHADONE HCL 5 MG TABLET (FOR DETOX USE ONLY) PO ONE (06:00)
[2019-01-30] MEDS ORDERED: METHADONE HCL 10 MG TABLET (FOR DETOX USE ONLY) PO ONE (10:00)
[2019-01-31] MEDS ORDERED: METHADONE HCL 5 MG TABLET (FOR DETOX USE ONLY) PO ONE (06:00)
== END 2019-01-28 11:37 | disposition left against medical advice (07) | DRG 770 ==
LOC: YASAS 09:46 → Y6N 12:44
PROVIDERS: ADMIT Surgery; ATTEND Surgery
PROC: HZ2ZZZZ Detoxification Services for Substance Abuse Treatment (ICD-10-PCS; principal; 2019-01-26)
DX: F11.23 Opioid dependence with withdrawal (principal); F10.230 Alcohol dependence with withdrawal, uncomplicated; F13.10 Sedative, hypnotic or anxiolytic abuse, uncomplicated; F14.20 Cocaine dependence, uncomplicated; F12.20 Cannabis dependence, uncomplicated; F17.210 Nicotine dependence, cigarettes, uncomplicated
CPT/HCPCS: 36415; 80053; 85027; 86593; 93005; 93010; J0735

== ENCOUNTER 2019-02-11 17:35 | Inpatient (IN) | payer OTHER ==
[2019-02-11 18:02] VITALS: BMI 19.2
--- NOTE | 2019-02-11 20:13 | HP ---
COWS - Scale Resting Pulse: 0= [place] 80 or Below Sweatin=Flushed/Facial Moisture Restless Observation: 3= Extraneous Movement Pupil Size: 0= Normal to Room Light Bone or Joint Aches: 4=Acute Joint/Muscle Pain Runny Nose/ Eye Tearin= Nasal Congestion GI Upset > 30mins: 2= Nausea/Diarrhea Tremor Observation: 4= Gross Tremor/Twitching Yawning Observation: 0= None Anxiety or Irritability: 2=Irritable/Anxious Goose Flesh Skin: 0=Smooth Skin COWS Score: 18 CIWA Score Nausea/Vomitin-No Nausea/No Vomiting Muscle Tremors: 4-Moderate,w/Arms Extend Anxiety: 4-Mod. Anxious/Guarded Agitation: 4-Moderately Restless Paroxysmal Sweats: 3 Orientation: 0-Oriented Tacttile Disturbances: 0-None Auditory Disturbances: 0-None Visual Disturbances: 2-Mild Sensitivity Headache: 2-Mild CIWA-Ar Total Score: 19 - Admission Criteria [facility] Guidelines: Admission for Medically Managed Detox: Requires at least one of the followin. CIWA greater than 12 2. Seizures within the past 24 hours 3. Delirium tremens within the past 24 hours 4. Hallucinations within the past 24 hours 5. Acute intervention needed for co occurring medical disorder 6. Acute intervention needed for co occurring psychiatric disorder 7. Severe withdrawal that cannot be handled at a lower level of care (continued vomiting, continued diarrhea, abnormal vital signs) requiring intravenous medication and/or fluids 8. Patient presents the following: CIWA greater than 12 Admission Criteria Met: Admission criteria met Admission ROS [facility] Chief Complaint: C/O WORSENING WITHDRAWAL SX'S. SEEKING DETOX Allergies/Adverse Reactions: Allergies Allergy/AdvReac Type Severity Reaction Status Date / Time vancomycin Allergy Intermediate Rash Verified 02/11/19 21:03 chlordiazepoxide AdvReac Verified 02/11/19 21:03 [From Librium] librium AdvReac Uncoded 02/11/19 21:03 History of Present Illness: 28 Y.O. MALE WITH HX/O OPIOID/BENZO/ALCOHOL DEPENDENCE HERE FOR DETOX. CLIENT IS SELF REFERRED, KNOWN TO THIS PROGRAM. AMA LAST ADMISSION AFTER 2 DAYS. REPORTS ILL MOTHER. PRESENTS TODAY C/O WORSENING WITHDRAWAL SX'S COWS-18, CIWA- 19. REPORTS GIRLFRIEND OVERDOSED AND 2 WEEKS AGO WELL. PENDING ACS CASE. REPORTS LONGEST CLEAN TIME 14 MONTHS. RELAPSING DEC 21. DENIES HX/O SEIZURES, SI/HI/AVH. REPORTS HX/O OVERDOSE X 1. DOMICILED. PMHX- DENIES PSYCH- DENIES Exam Limitations: No Limitations - Ebola screening Have you traveled outside of the country in the last 21 days: No (N) Have you had contact with anyone from an Ebola affected area: No Do you have a fever: No - Review of Systems Constitutional: Chills, Loss of Appetite, Malaise, Changes in sleep EENT: reports: Nose Congestion, Dental Problems (PARTIAL DENTURES) Respiratory: reports: No Symptoms reported Cardiac: reports: No Symptoms Reported GI: reports: Diarrhea, Poor Appetite, Poor Fluid Intake, Abdominal cramping : reports: No Symptoms Reported Musculoskeletal: reports: Back Pain, Joint Pain, Neck Pain Integumentary: reports: Flushing Neuro: reports: Headache, Tremors Endocrine: reports: No Symptoms Reported Hematology: reports: No Symptoms Reported Psychiatric: reports: Orientated x3, Agitated (IRRITABLE), Anxious, Depressed Other Systems: Reviewed and Negative Patient History - Patient Medical History Hx Anemia: No Hx Asthma: No Hx Chronic Obstructive Pulmonary Disease (COPD): No Hx Cancer: No Hx Cardiac Disorders: No Hx Congestive Heart Failure: No Hx Hypertension: No Hx Hypercholesterolemia: No Hx Pacemaker: No HX Cerebrovascular Accident: No Hx Seizures: No Hx Dementia: No Hx Diabetes: No Hx Gastrointestinal Disorders: No Hx Liver Disease: No Hx Genitourinary Disorders: No Hx Sexually Transmitted Disorders: No Hx Renal Disease (ESRD): No Hx Thyroid Disease: No Hx Human Immunodeficiency Virus (HIV): No Hx Hepatitis C: No Hx Depression: No Hx Suicide Attempt: No Hx Bipolar Disorder: No Hx Schizophrenia: No Other Medical History: DENIES - Patient Surgical History Past Surgical History: Yes Hx Neurologic Surgery: No Hx Cataract Extraction: No Hx Cardiac Surgery: No Hx Lung Surgery: No Hx Breast Surgery: No Hx Breast Biopsy: No Hx Abdominal Surgery: Yes (LEFT INGUINAL HERNIA REPAIR 1990) Hx Appendectomy: No Hx Cholecystectomy: No Hx Genitourinary Surgery: No Hx Section: No Hx Orthopedic Surgery: No Other Surgical History: left inguinal hernia repair 1990 Anesthesia Reaction: No - PPD History Previous Implant?: Yes Documented Results: Negative w/proof Implanted On Prior R Admission?: Yes Date: 11/14/18 Results: 1 MM PPD to be Administered?: No - Smoking Cessation Smoking history: Current every day smoker Have you smoked in the past 12 months: Yes Aproximately how many cigarettes per day: 20 Cigars Per Day: 0 Hx Chewing Tobacco Use: No Initiated information on smoking cessation: Yes 'Breaking Loose' booklet given: 02/11/19 - Substance & Tx. History Hx Alcohol Use: Yes Hx Substance Use: Yes Substance Use Type: Alcohol, Cocaine, Heroin, Tranquilizers Hx Substance Use Treatment: Yes ([facility]) - Substances abused Heroin Substance route: Injection Frequency: Daily Amount used: 10 BAGS Age of first use: 24 Date of last use: 02/11/19 Alcohol Other (specify): VODKA Substance route: Oral Frequency: Daily Amount used: 2 PINTS Age of first use: 15 Date of last use: 02/10/19 Benzodiazepine (Klonopin) Other (specify): AND XANAX Substance route: Oral Frequency: Daily Amount used: 10-12 MG Age of first use: 12 Date of last use: 02/10/19 Cocaine Substance route: Injection Frequency: 1-2 times per week Amount used: $100 Age of first use: 22 Date of last use: 02/09/19 Family Disease History - Family Disease History Family Disease History: Heart Disease: Grandparent (), Other: Father, Mother (thyroid), Brother (/OD) Admission Physical Exam S - Vital Signs Vital Signs: Vital Signs - 24 hr 02/11/19 18:00 Temperature 96.4 F L Pulse Rate 71 Respiratory 18 Rate Blood Pressure 110/70 - Physical General Appearance: Yes: Moderate Distress, Cachetic (THIN), Tremorous, Irritable, Sweating (FLUSHED), Anxious HEENTM: Yes: EOMI, Normocephalic, Normal Voice, ZACARIAS, Pharynx Normal, Nasal Congestion, Other (MISSING TEETH) Respiratory: Yes: Chest Non-Tender, Lungs Clear, Normal Breath Sounds, No Respiratory Distress, No Accessory Muscle Use Neck: Yes: No masses,lesions,Nodules, Supple, Trachea in good position Breast: Yes: Breast Exam Deferred Cardiology: Yes: Regular Rhythm, Regular Rate, S1, S2 Abdominal: Yes: Normal Bowel Sounds, Non Tender, Flat, Soft Genitourinary: Yes: Within Normal Limits (NO C/O) Back: Yes: Normal Inspection Musculoskeletal: Yes: full range of Motion, Gait Steady Extremities: Yes: Normal Capillary Refill, Normal Range of Motion, Non-Tender, Tremors Neurological: Yes: Fully Oriented, Alert, Motor Strength 5/5, Depressed Affect Integumentary: Yes: Warm, Track [place] (BOTH ARMS-AC), Other (FLUSHED) Lymphatic: Yes: Within Normal Limits - Diagnostic (1) Alcohol dependence with uncomplicated withdrawal Current Visit: Yes Status: Acute (2) Depressed affect Current Visit: Yes Status: Acute (3) Recent bereavement Current Visit: Yes Status: Acute (4) At risk for dehydration due to poor fluid intake Current Visit: Yes Status: Acute (5) Opioid dependence with withdrawal Current Visit: Yes Status: Acute (6) Sedative, hypnotic or anxiolytic dependence with withdrawal, uncomplicated Current Visit: Yes Status: Acute (7) Weight decreased Current Visit: Yes Status: Acute (8) Cocaine dependence, uncomplicated Current Visit: Yes Status: Acute (9) Nicotine dependence Current Visit: Yes Status: Chronic Qualifiers: Nicotine product type: cigarettes Substance use status: uncomplicated Qualified Code(s): F17.210 - Nicotine dependence, cigarettes, uncomplicated Cleared for Admission [facility] - Detox or Rehab [facility] Level of Care: Medically Managed Detox Regimen/Protocol: Methadone/Valium Claeared for Rehab Admission: No (CLIENT REQUESTING VALIUM OVER LIBRIUM) Breathalyzer - Breathalyzer Breathalyzer: 0 Urine Drug Screen - Test Device Lot number: [id number] Expiration date: 10/07/20 - Control Is test valid?: Yes - Results Drug screen NEGATIVE: No Urine drug screen results: PINA-Cocaine, MET-Methamphetamine, AMP-Amphetamines, FEN-Fentanyl, MOP-Opiates, OXY-Oxycodone, MTD-Methadone, BZO-Benzodiazepines Inpatient Rehab Admission - Rehab Decision to Admit Inpatient rehab admission?: No
[2019-02-11] MEDS ORDERED: NALOXONE HCL 0.4 MG/ML VIAL IVPUSH PRN (20:19)
[2019-02-11] MEDS ORDERED: METHOCARBAMOL 500 MG TABLET PO PRN (20:19)
[2019-02-11] MEDS ORDERED: IBUPROFEN 400 MG TABLET (FP) PO PRN (20:19)
[2019-02-11] MEDS ORDERED: guaiFENesin 200 MG/10 ML 10 ML UNIT-DOSE CUPS PO PRN (20:19)
[2019-02-11] MEDS ORDERED: ONDANSETRON *ODT* 4 MG TABLET SL PRN (20:19)
[2019-02-11] MEDS ORDERED: P-EPHED 60MG/TRIPROLIDI 2.5MG TABLET PO PRN (20:19)
[2019-02-11] MEDS ORDERED: MAGNESIUM HYDROX 2400MG/30ML ORAL SUSPENSION 30 ML CUP PO PRN (20:19)
[2019-02-11] MEDS ORDERED: NICOTINE POLACRILEX 2 MG GUM BUC PRN (20:19)
[2019-02-11] MEDS ORDERED: MAG HYDROX/AL HYDROX/SIMETH 30 ML UNIT-DOSE CUP PO PRN (20:19)
[2019-02-11] MEDS ORDERED: cloNIDine HCL 0.1 MG TABLET PO PRN (20:19)
[2019-02-11] MEDS ORDERED: MAGNESIUM CITRATE 300 ML BOTTLE PO PRN (20:19)
[2019-02-11] MEDS ORDERED: DICYCLOMINE HCL 10 MG CAPSULE PO PRN (20:19)
[2019-02-11] MEDS ORDERED: ACETAMINOPHEN 325 MG TABLET (FP) PO PRN ×2 (20:19)
[2019-02-11] MEDS ORDERED: MENTHOL/PHENOL 1 EACH UD MM PRN (20:19)
[2019-02-11] MEDS ORDERED: BISMUTH SUBSALICYLATE 524 MG/30 ML UD PO PRN (20:19)
[2019-02-11] MEDS: THIAMINE HCL 100 MG TABLET (FP) PO SCH (22:20)
[2019-02-11] MEDS: diazePAM 5 MG TABLET PO SCH (22:20)
[2019-02-11] MEDS: MELATONIN 5 MG TABLETS PO PRN (22:21)
[2019-02-11] MEDS ORDERED: METHADONE HCL 10 MG TABLET (FOR DETOX USE ONLY) PO ONE (23:00)
[2019-02-12] MEDS: diazePAM 5 MG TABLET PO SCH ×3 (05:00→22:28)
[2019-02-12] MEDS: diazePAM 5 MG TABLET PO PRN ×2 (08:19→17:12)
[2019-02-12 10:00] LABS: ALBUMIN 3.6 g/dl (3.4-5.0); ALK PHOS 74 U/L (45-117); ANION GAP 4 MMOL/L (8-16); BILIRUBIN,TOTAL 0.2 mg/dL (0.2-1); BLOOD UREA NITROGEN 12 mg/dL (7-18); CALCIUM 8.8 mg/dL (8.5-10.1); CHLORIDE 104 mmol/L (98-107); CO2 29 mmol/L (21-32); CREATININE 0.7 mg/dL (0.55-1.3); GLUCOSE,RANDOM 90 mg/dL (74-106); POTASSIUM 3.7 mmol/L (3.5-5.1); SGOT/AST 13 U/L (15-37); SGPT/ALT 23 U/L (13-61); SODIUM 137 mmol/L (136-145); TOT PROT 6.6 g/dl (6.4-8.2)
[2019-02-12] MEDS ORDERED: METHADONE HCL 10 MG TABLET (FOR DETOX USE ONLY) PO ONE (10:00)
[2019-02-12 10:01] LABS: BASO % 0.9 % (0-2.0); HEMATOCRIT 38.5 % (35.4-49); HEMOGLOBIN 13.3 GM/dL (11.7-16.9); MCH 31.9 pg (25.7-33.7); MCHC 34.6 g/dl (32.0-35.9); MEAN CELL VOLUME 92.3 fl (80-96); MEAN PLT VOLUME 8.8 fl (7.5-11.1); MONO % 8.4 % (3.8-10.2); NEUT % 29.7 % (42.8-82.8); PLATELET COUNT 209 K/MM3 (134-434); RBC 4.17 M/mm3 (4.00-5.60); RDW 14.5 % (11.9-15.9); WHITE BLOOD COUNT 5.9 K/mm3 (4.0-10.0)
[2019-02-12] MEDS: PRENATAL VITAMINS W/ FOLIC ACID TABLET (FP) PO SCH (10:38)
[2019-02-12] MEDS: NICOTINE 21 MG/24 HOURS TOPICAL PATCH TD SCH (10:38)
--- NOTE | 2019-02-12 13:17 | PN ---
S Progress Note Note: Twice interview was solicited from patient, twice he declined citing he was tired and wanted to slleep
--- NOTE | 2019-02-12 15:47 | PN ---
S CIWA - CIWA Score Nausea/Vomitin-Mild Nausea/No Vomiting Muscle Tremors: 4-Moderate,w/Arms Extend Anxiety: 3 Agitation: 2 Paroxysmal Sweats: 1-Minimal Palms Moist Orientation: 2-Disoriented Date<2 days Tacttile Disturbances: 0-None Auditory Disturbances: 0-None Visual Disturbances: 0-None Headache: 1-Very Mild CIWA-Ar Total Score: 14 BHS COWS - Scale Resting Pulse: 0= [place] 80 or Below Sweatin= Chills/Flushing Restless Observation: 1= Difficult to Sit Still (anxious) Pupil Size: 0= Normal to Room Light Bone or Joint Aches: 2= Severe Diffuse Aches Runny Nose/ Eye Tearin= Nasal Congestion GI Upset > 30mins: 2= Nausea/Diarrhea Tremor Observation of Outstretched Hands: 2= Slight Tremor Visible Yawning Observation: 2= >3x During Session Anxiety or Irritability: 2=Irritable/Anxious Goose Flesh Skin: 0=Smooth Skin COWS Score: 13 S Progress Note (SOAP) Subjective: patient walking on hallway tolerate food well Objective: 02/12/19 15:45 Vital Signs Temperature 97.7 F 02/12/19 13:30 Pulse Rate 68 02/12/19 13:30 Respiratory Rate 16 02/12/19 13:30 Blood Pressure 101/57 L 02/12/19 13:30 O2 Sat by Pulse Oximetry (%) Laboratory Last Values WBC 5.9 K/mm3 (4.0-10.0) 02/12/19 07:50 RBC 4.17 M/mm3 (4.00-5.60) 02/12/19 07:50 Hgb 13.3 GM/dL (11.7-16.9) 02/12/19 07:50 Hct 38.5 % (35.4-49) 02/12/19 07:50 MCV 92.3 fl (80-96) 02/12/19 07:50 MCH 31.9 pg (25.7-33.7) 02/12/19 07:50 MCHC 34.6 g/dl (32.0-35.9) 02/12/19 07:50 RDW 14.5 % (11.9-15.9) 02/12/19 07:50 Plt Count 209 K/MM3 (134-434) 02/12/19 07:50 MPV 8.8 fl (7.5-11.1) 02/12/19 07:50 Absolute Neuts (auto) 1.7 K/mm3 (1.5-8.0) 02/12/19 07:50 Neutrophils % 29.7 % (42.8-82.8) L 02/12/19 07:50 Lymphocytes % 56.0 % (8-40) H 02/12/19 07:50 Monocytes % 8.4 % (3.8-10.2) D 02/12/19 07:50 Eosinophils % 5.0 % (0-4.5) H D 02/12/19 07:50 Basophils % 0.9 % (0-2.0) 02/12/19 07:50 Nucleated RBC % 0 % (0-0) 02/12/19 07:50 Sodium 137 mmol/L (136-145) 02/12/19 07:50 Potassium 3.7 mmol/L (3.5-5.1) 02/12/19 07:50 Chloride 104 mmol/L (98-107) 02/12/19 07:50 Carbon Dioxide 29 mmol/L (21-32) 02/12/19 07:50 Anion Gap 4 MMOL/L (8-16) L 02/12/19 07:50 BUN 12 mg/dL (7-18) 02/12/19 07:50 Creatinine 0.7 mg/dL (0.55-1.3) 02/12/19 07:50 Creat Clearance w eGFR 133.33 (>60) 02/12/19 07:50 Random Glucose 90 mg/dL (74-106) 02/12/19 07:50 Calcium 8.8 mg/dL (8.5-10.1) 02/12/19 07:50 Total Bilirubin 0.2 mg/dL (0.2-1) 02/12/19 07:50 AST 13 U/L (15-37) L 02/12/19 07:50 ALT 23 U/L (13-61) 02/12/19 07:50 Alkaline Phosphatase 74 U/L (45-117) 02/12/19 07:50 Total Protein 6.6 g/dl (6.4-8.2) 02/12/19 07:50 Albumin 3.6 g/dl (3.4-5.0) 02/12/19 07:50 lab noted Assessment: 02/12/19 15:46 withdrawal sx Plan: continue detox
[2019-02-12] MEDS: MELATONIN 5 MG TABLETS PO PRN (22:28)
[2019-02-12] MEDS: THIAMINE HCL 100 MG TABLET (FP) PO SCH (22:29)
[2019-02-13 06:48] VITALS: PULSE 75
[2019-02-13] MEDS: diazePAM 5 MG TABLET PO PRN (08:52)
[2019-02-13 09:18] VITALS: BP 112/71; TEMP 97
[2019-02-13] MEDS ORDERED: METHADONE HCL 5 MG TABLET (FOR DETOX USE ONLY) PO ONE (10:00)
[2019-02-13] MEDS ORDERED: diazePAM 5 MG TABLET PO SCH (10:00)
[2019-02-13] MEDS ORDERED: METHADONE HCL 10 MG TABLET (FOR DETOX USE ONLY) PO ONE (10:00)
[2019-02-13] MEDS: PRENATAL VITAMINS W/ FOLIC ACID TABLET (FP) PO SCH (10:33)
[2019-02-13] MEDS: NICOTINE 21 MG/24 HOURS TOPICAL PATCH TD SCH (10:33)
--- NOTE | 2019-02-13 15:33 | DS ---
[facility] Detox Discharge Summary Admission Date: 02/11/19 Discharge Date: 02/13/19 - History Present History: Alcohol Dependence, Opioid Dependence, Sedative Dependence Additional Comments: 28 years old male admitted on 02/11/19 for alcohol benzo opiate withdrawal stabilization insists to leave the detox unit that requesting higher dosage of methadone that 15 mg of methadone does not doing anything emotional assurance given that supportive therapeutic measure can be applied patient refusing supportive care but methadone discuss medication asissted maintenance treatment program provider resources walk in clinics - [facility] [place] Pertinent Past History: discuss multiple previous unsuccessful detox strong recommend medication maintenance program - Physical Exam Results Vital Signs: Vital Signs Temperature 97 F L 02/13/19 09:18 Pulse Rate 75 02/13/19 09:18 Respiratory Rate 18 02/13/19 09:18 Blood Pressure 112/71 02/13/19 09:18 O2 Sat by Pulse Oximetry (%) Pertinent Admission Physical Exam Findings: alcohol benzo opiate withdrawal sx Laboratory Last Values WBC 5.9 K/mm3 (4.0-10.0) 02/12/19 07:50 RBC 4.17 M/mm3 (4.00-5.60) 02/12/19 07:50 Hgb 13.3 GM/dL (11.7-16.9) 02/12/19 07:50 Hct 38.5 % (35.4-49) 02/12/19 07:50 MCV 92.3 fl (80-96) 02/12/19 07:50 MCH 31.9 pg (25.7-33.7) 02/12/19 07:50 MCHC 34.6 g/dl (32.0-35.9) 02/12/19 07:50 RDW 14.5 % (11.9-15.9) 02/12/19 07:50 Plt Count 209 K/MM3 (134-434) 02/12/19 07:50 MPV 8.8 fl (7.5-11.1) 02/12/19 07:50 Absolute Neuts (auto) 1.7 K/mm3 (1.5-8.0) 02/12/19 07:50 Neutrophils % 29.7 % (42.8-82.8) L 02/12/19 07:50 Lymphocytes % 56.0 % (8-40) H 02/12/19 07:50 Monocytes % 8.4 % (3.8-10.2) D 02/12/19 07:50 Eosinophils % 5.0 % (0-4.5) H D 02/12/19 07:50 Basophils % 0.9 % (0-2.0) 02/12/19 07:50 Nucleated RBC % 0 % (0-0) 02/12/19 07:50 Sodium 137 mmol/L (136-145) 02/12/19 07:50 Potassium 3.7 mmol/L (3.5-5.1) 02/12/19 07:50 Chloride 104 mmol/L (98-107) 02/12/19 07:50 Carbon Dioxide 29 mmol/L (21-32) 02/12/19 07:50 Anion Gap 4 MMOL/L (8-16) L 02/12/19 07:50 BUN 12 mg/dL (7-18) 02/12/19 07:50 Creatinine 0.7 mg/dL (0.55-1.3) 02/12/19 07:50 Creat Clearance w eGFR 133.33 (>60) 02/12/19 07:50 Random Glucose 90 mg/dL (74-106) 02/12/19 07:50 Calcium 8.8 mg/dL (8.5-10.1) 02/12/19 07:50 Total Bilirubin 0.2 mg/dL (0.2-1) 02/12/19 07:50 AST 13 U/L (15-37) L 02/12/19 07:50 ALT 23 U/L (13-61) 02/12/19 07:50 Alkaline Phosphatase 74 U/L (45-117) 02/12/19 07:50 Total Protein 6.6 g/dl (6.4-8.2) 02/12/19 07:50 Albumin 3.6 g/dl (3.4-5.0) 02/12/19 07:50 lab noted - Treatment Hospital Course: Detox Protocol Followed, Responded well Patient has Accepted a Rehab Referral to: recommend medication assissted programs - Medication Discharge Medications: Ambulatory Orders NK [No Known Home Medication] 05/04/18 - Diagnosis (1) Alcohol dependence with uncomplicated withdrawal Status: Acute (2) Opioid dependence with withdrawal Status: Acute (3) Sedative, hypnotic or anxiolytic dependence with withdrawal, uncomplicated Status: Acute (4) Weight decreased Status: Acute (5) Nicotine dependence Status: Chronic Qualifiers: Nicotine product type: cigarettes Substance use status: in withdrawal Qualified Code(s): F17.213 - Nicotine dependence, cigarettes, with withdrawal - AMA Did Patient Leave Against Medical Advice: Yes
[2019-02-14] MEDS ORDERED: diazePAM 5 MG TABLET PO SCH (06:00)
[2019-02-14] MEDS ORDERED: METHADONE HCL 10 MG TABLET (FOR DETOX USE ONLY) PO ONE (10:00)
[2019-02-15] MEDS ORDERED: METHADONE HCL 5 MG TABLET (FOR DETOX USE ONLY) PO ONE (06:00)
== END 2019-02-13 11:00 | disposition home or self-care (01) | DRG 770 ==
LOC: YASAS 17:35 → Y3N 20:38
PROVIDERS: ADMIT Surgery; ATTEND Surgery
PROC: HZ2ZZZZ Detoxification Services for Substance Abuse Treatment (ICD-10-PCS; principal; 2019-02-11)
DX: F11.23 Opioid dependence with withdrawal (principal); F10.230 Alcohol dependence with withdrawal, uncomplicated; F13.230 Sedative, hypnotic or anxiolytic dependence with withdrawal, uncomplicated; F12.20 Cannabis dependence, uncomplicated; F17.213 Nicotine dependence, cigarettes, with withdrawal; F34.1 Dysthymic disorder; Z63.4 Disappearance and death of family member; R63.4 Abnormal weight loss; R63.8 Other symptoms and signs concerning food and fluid intake; Z88.1 Allergy status to other antibiotic agents
CPT/HCPCS: 36415; 80053; 85025; Q0162

== ENCOUNTER 2019-03-14 09:54 | Inpatient (IN) | payer OTHER ==
[2019-03-14 10:58] VITALS: BMI 20.7
--- NOTE | 2019-03-14 12:40 | HP ---
COWS - Scale Resting Pulse: 1= [place] 81-100 Sweatin= Chills/Flushing Restless Observation: 1= Difficult to Sit Still Pupil Size: 1= Pupils >than Normal Bone or Joint Aches: 2= Severe Diffuse Aches Runny Nose/ Eye Tearin= Runny Nose/Eyes GI Upset > 30mins: 2= Nausea/Diarrhea Tremor Observation: 1= Tremor [place], Not Seen Yawning Observation: 1= 1-2x During Session Anxiety or Irritability: 2=Irritable/Anxious Goose Flesh Skin: 3=Piloerection COWS Score: 17 CIWA Score Nausea/Vomitin Muscle Tremors: 2 Anxiety: 3 Agitation: 3 Paroxysmal Sweats: 1-Minimal Palms Moist Orientation: 0-Oriented Tacttile Disturbances: 0-None Auditory Disturbances: 0-None Visual Disturbances: 0-None Headache: 1-Very Mild CIWA-Ar Total Score: 12 - Admission Criteria OASAS Guidelines: Admission for Medically Managed Detox: Requires at least one of the followin. CIWA greater than 12 2. Seizures within the past 24 hours 3. Delirium tremens within the past 24 hours 4. Hallucinations within the past 24 hours 5. Acute intervention needed for co occurring medical disorder 6. Acute intervention needed for co occurring psychiatric disorder 7. Severe withdrawal that cannot be handled at a lower level of care (continued vomiting, continued diarrhea, abnormal vital signs) requiring intravenous medication and/or fluids 8. Patient presents the following: CIWA greater than 12 Admission Criteria Met: Admission criteria met Admission ROS [facility] Chief Complaint: alcohol and xanax and opioid rehab 28 yo with no medical problems and on gabapentin for anxiety and benadryl for sleep. Left here about a month ago after detox and relapsed almost immediately with alcohol and xanax and heroin. Heroin- uses 7-8 bags IV/day, once OD 2018, of OD 2 months ago alcohol- 1 pint-2 pints/vodka, no seizures, no DT's xanax: 10mg-12 mg/day cocaine- $100/day once or twice a month MTD-bought a bottle a week ago Suboxone rec'd about 3 weeks ago- Utox: akash, fen, opi, bzo, MTD, Bup ISTOP: Bup about 3 weeks Allergies/Adverse Reactions: Allergies Allergy/AdvReac Type Severity Reaction Status Date / Time vancomycin Allergy Intermediate Rash Verified 03/14/19 10:47 chlordiazepoxide AdvReac Verified 03/14/19 10:47 [From Librium] librium AdvReac Uncoded 03/14/19 10:47 - Ebola screening Have you traveled outside of the country in the last 21 days: No Have you had contact with anyone from an Ebola affected area: No Do you have a fever: No Patient History - Patient Medical History Hx Anemia: No Hx Asthma: No Hx Chronic Obstructive Pulmonary Disease (COPD): No Hx Cancer: No Hx Cardiac Disorders: No Hx Congestive Heart Failure: No Hx Hypertension: No Hx Hypercholesterolemia: No Hx Pacemaker: No HX Cerebrovascular Accident: No Hx Seizures: No Hx Dementia: No Hx Diabetes: No Hx Gastrointestinal Disorders: No Hx Liver Disease: No Hx Genitourinary Disorders: No Hx Sexually Transmitted Disorders: No Hx Renal Disease (ESRD): No Hx Thyroid Disease: No Hx Human Immunodeficiency Virus (HIV): No Hx Hepatitis C: No Hx Depression: No Hx Suicide Attempt: No Hx Bipolar Disorder: No Hx Schizophrenia: No - Patient Surgical History Past Surgical History: Yes Hx Neurologic Surgery: No Hx Cataract Extraction: No Hx Cardiac Surgery: No Hx Lung Surgery: No Hx Breast Surgery: No Hx Breast Biopsy: No Hx Abdominal Surgery: Yes (LEFT INGUINAL HERNIA REPAIR 1990) Hx Appendectomy: No Hx Cholecystectomy: No Hx Genitourinary Surgery: No Hx Section: No Hx Orthopedic Surgery: No Other Surgical History: left inguinal hernia repair 1990 Anesthesia Reaction: No - PPD History Date: 11/14/18 Results: 1 MM - Smoking Cessation Smoking history: Current every day smoker Have you smoked in the past 12 months: Yes Aproximately how many cigarettes per day: 20 Cigars Per Day: 0 Hx Chewing Tobacco Use: No Initiated information on smoking cessation: Yes 'Breaking Loose' booklet given: 03/14/19 - Substances abused Heroin Substance route: Injection Frequency: Daily Amount used: 10 BAGS Age of first use: 24 Date of last use: 03/14/19 Alcohol Other (specify): VODKA Substance route: Oral Frequency: Daily Amount used: 2 PINTS Age of first use: 15 Date of last use: 03/12/19 Benzodiazepine (Klonopin) Other (specify): AND XANAX Substance route: Oral Frequency: Daily Amount used: 10-12 MG Age of first use: 12 Date of last use: 03/13/19 Cocaine Substance route: Injection Frequency: 1-2 times per week Amount used: $100 Age of first use: 22 Date of last use: 03/12/19 Family Disease History - Family Disease History Family Disease History: Heart Disease: Grandparent (), Other: Father, Mother (thyroid), Brother (/OD) Admission Physical Exam BHS - Vital Signs Vital Signs: Vital Signs - 24 hr 03/14/19 10:44 Temperature 97.7 F Pulse Rate 161 H Respiratory 14 Rate Blood Pressure 101/61 - Physical General Appearance: Yes: Within Normal Limits, Disheveled, Mild Distress HEENTM: Yes: Within Normal Limits, EOMI, Hearing grossly Normal Respiratory: Yes: Within Normal Limits Neck: Yes: Within Normal Limits Cardiology: Yes: Within Normal Limits Abdominal: Yes: Within Normal Limits Genitourinary: Yes: Within Normal Limits Back: Yes: Within Normal Limits Musculoskeletal: Yes: Within Normal Limits Extremities: Yes: Within Normal Limits Neurological: Yes: Within Normal Limits Integumentary: Yes: Within Normal Limits, Track [place] - Diagnostic (1) Alcohol dependence with uncomplicated withdrawal Current Visit: No Status: Acute (2) Cocaine dependence Current Visit: No Status: Acute (3) Opioid dependence with withdrawal Current Visit: No Status: Acute (4) Sedative abuse Current Visit: No Status: Acute (5) Sedative, hypnotic or anxiolytic dependence with withdrawal, uncomplicated Current Visit: No Status: Acute (6) Benzodiazepine dependence Current Visit: No Status: Chronic (7) Nicotine dependence Current Visit: No Status: Chronic Qualifiers: Nicotine product type: cigarettes Substance use status: in withdrawal Qualified Code(s): F17.213 - Nicotine dependence, cigarettes, with withdrawal Breathalyzer - Breathalyzer Breathalyzer: 0 Urine Drug Screen - Test Device Lot number: [id number] Expiration date: 10/07/20 - Control Is test valid?: Yes - Results Drug screen NEGATIVE: No Urine drug screen results: AKASH-Cocaine, MET-Methamphetamine, AMP-Amphetamines, FEN-Fentanyl, MOP-Opiates, OXY-Oxycodone, MTD-Methadone, BZO-Benzodiazepines Inpatient Rehab Admission - Rehab Decision to Admit Inpatient rehab admission?: No
[2019-03-14] MEDS ORDERED: BISMUTH SUBSALICYLATE 262 MG/15 ML BTL PO PRN (12:44)
[2019-03-14] MEDS ORDERED: MENTHOL/PHENOL 1 EACH UD MM PRN (12:44)
[2019-03-14] MEDS ORDERED: hydrOXYzine PAMOATE 25 MG CAPSULE (FP) PO PRN (12:44)
[2019-03-14] MEDS ORDERED: IBUPROFEN 400 MG TABLET (FP) PO PRN (12:44)
[2019-03-14] MEDS ORDERED: MAGNESIUM HYDROX 2400MG/30ML ORAL SUSPENSION 30 ML CUP PO PRN (12:44)
[2019-03-14] MEDS ORDERED: METHOCARBAMOL 500 MG TABLET PO PRN (12:44)
[2019-03-14] MEDS ORDERED: MELATONIN 5 MG TABLETS PO PRN (12:44)
[2019-03-14] MEDS ORDERED: cloNIDine HCL 0.1 MG TABLET PO PRN ×2 (12:44→12:50)
[2019-03-14] MEDS ORDERED: NICOTINE POLACRILEX 4 MG GUM BUC PRN (12:44)
[2019-03-14] MEDS ORDERED: ACETAMINOPHEN 325 MG TABLET (FP) PO PRN ×2 (12:44)
[2019-03-14] MEDS ORDERED: MAG HYDROX/AL HYDROX/SIMETH 30 ML UNIT-DOSE CUP PO PRN (12:44)
[2019-03-14] MEDS ORDERED: diazePAM 5 MG TABLET PO ONE (12:44)
[2019-03-14] MEDS ORDERED: MAGNESIUM CITRATE 300 ML BOTTLE PO PRN (12:44)
[2019-03-14] MEDS ORDERED: ONDANSETRON *ODT* 4 MG TABLET SL PRN (12:44)
[2019-03-14] MEDS ORDERED: METHADONE (DETOX) 10 MG, METHADONE (DETOX) 5 MG PO ONE (12:48)
[2019-03-14] MEDS ORDERED: diphenhydrAMINE HCL 50 MG CAPSULE PO PRN (12:50)
[2019-03-14] MEDS ORDERED: METHADONE HCL 10 MG TABLET (FOR DETOX USE ONLY) PO ONE ×2 (14:00→23:00)
[2019-03-14] MEDS: GABAPENTIN 300 MG CAPSULE (FP) PO SCH ×2 (14:18→22:21)
[2019-03-14] MEDS: diazePAM 5 MG TABLET PO SCH ×2 (14:20→22:21)
[2019-03-14] MEDS: diazePAM 5 MG TABLET PO PRN (17:35)
[2019-03-14 19:33] LABS: HEMATOCRIT 42.8 % (35.4-49); HEMOGLOBIN 14.6 GM/dL (11.7-16.9); MCHC 34.1 g/dl (32.0-35.9); MEAN CELL VOLUME 93.7 fl (80-96); MEAN PLT VOLUME 8.8 fl (7.5-11.1); PLATELET COUNT 256 K/MM3 (134-434); RBC 4.57 M/mm3 (4.00-5.60); RDW 14.1 % (11.9-15.9); WHITE BLOOD COUNT 7.3 K/mm3 (4.0-10.0)
[2019-03-14 19:38] LABS: ALBUMIN 4.4 g/dl (3.4-5.0); ALK PHOS 86 U/L (45-117); ANION GAP 4 MMOL/L (8-16); BILIRUBIN,TOTAL 0.4 mg/dL (0.2-1); BLOOD UREA NITROGEN 9 mg/dL (7-18); CALCIUM 9.9 mg/dL (8.5-10.1); CHLORIDE 99 mmol/L (98-107); CO2 35 mmol/L (21-32); GLUCOSE,RANDOM 109 mg/dL (74-106); POTASSIUM 5.2 mmol/L (3.5-5.1); SGOT/AST 21 U/L (15-37); SGPT/ALT 36 U/L (13-61); SODIUM 138 mmol/L (136-145); TOT PROT 7.7 g/dl (6.4-8.2)
[2019-03-14] MEDS ORDERED: THIAMINE HCL 100 MG TABLET (FP) PO SCH (22:00)
[2019-03-15] MEDS: diazePAM 5 MG TABLET PO PRN ×2 (02:26→10:32)
[2019-03-15] MEDS: GABAPENTIN 300 MG CAPSULE (FP) PO SCH (07:49)
[2019-03-15] MEDS: diazePAM 5 MG TABLET PO SCH (07:50)
[2019-03-15 08:22] VITALS: TEMP 97.7
[2019-03-15 09:55] VITALS: BP 111/59; PULSE 62
[2019-03-15] MEDS ORDERED: PRENATAL VITAMINS W/ FOLIC ACID TABLET (FP) PO SCH (10:00)
[2019-03-15] MEDS ORDERED: METHADONE HCL 10 MG TABLET (FOR DETOX USE ONLY) PO ONE (10:00)
[2019-03-15] MEDS ORDERED: NICOTINE 21 MG/24 HOURS TOPICAL PATCH TD SCH (10:00)
--- NOTE | 2019-03-15 10:10 | PN ---
[facility] CIWA - CIWA Score Nausea/Vomitin-No Nausea/No Vomiting Muscle Tremors: 3 Anxiety: 4-Mod. Anxious/Guarded Agitation: 3 Paroxysmal Sweats: 3 Orientation: 0-Oriented Tacttile Disturbances: 0-None Auditory Disturbances: 0-None Visual Disturbances: 0-None Headache: 0-None Present CIWA-Ar Total Score: 13 BHS COWS - Scale Resting Pulse: 0= [place] 80 or Below Sweatin= Chills/Flushing Restless Observation: 1= Difficult to Sit Still Pupil Size: 0= Normal to Room Light Bone or Joint Aches: 2= Severe Diffuse Aches Runny Nose/ Eye Tearin= Runny Nose/Eyes GI Upset > 30mins: 1= Stomach Cramp Tremor Observation of Outstretched Hands: 2= Slight Tremor Visible Yawning Observation: 2= >3x During Session Anxiety or Irritability: 2=Irritable/Anxious Goose Flesh Skin: 0=Smooth Skin COWS Score: 13 [facility] Progress Note (SOAP) Subjective: body aches sweats shakes interrupted sleep irritable agitation tired Objective: 03/15/19 10:09 Vital Signs Temperature 97.7 F 03/15/19 09:54 Pulse Rate 62 03/15/19 09:54 Respiratory Rate 18 03/15/19 09:54 Blood Pressure 111/59 L 03/15/19 09:54 O2 Sat by Pulse Oximetry (%) Laboratory Tests 03/14/19 03/14/19 03/14/19 13:00 13:00 13:00 WBC 7.3 RBC 4.57 Hgb 14.6 Hct 42.8 MCV 93.7 MCH 32.0 MCHC 34.1 RDW 14.1 Plt Count 256 D MPV 8.8 Sodium 138 Potassium 5.2 H Chloride 99 Carbon Dioxide 35 H Anion Gap 4 L BUN 9 Creatinine 1.0 Creat Clearance w eGFR 88.34 Random Glucose 109 H Calcium 9.9 Total Bilirubin 0.4 AST 21 ALT 36 Alkaline Phosphatase 86 Total Protein 7.7 Albumin 4.4 RPR Titer Nonreactive labs noted repeat potassium aaox3 lying in bed no acute distress Assessment: 03/15/19 10:10 withdrawal sx Plan: continue detox increase fluids f/u with repeated lab
[2019-03-15] MEDS ORDERED: diazePAM 5 MG TABLET PO SCH (14:00)
[2019-03-16] MEDS ORDERED: diazePAM 5 MG TABLET PO ONE (06:00)
[2019-03-16] MEDS ORDERED: METHADONE HCL 10 MG TABLET (FOR DETOX USE ONLY) PO ONE (10:00)
[2019-03-17] MEDS ORDERED: METHADONE HCL 10 MG TABLET (FOR DETOX USE ONLY) PO ONE (10:00)
[2019-03-18] MEDS ORDERED: METHADONE HCL 5 MG TABLET (FOR DETOX USE ONLY) PO ONE (06:00)
== END 2019-03-15 12:44 | disposition left against medical advice (07) | DRG 770 ==
LOC: YASAS 09:54 → Y6N 13:11
PROVIDERS: ADMIT Surgery; ATTEND Surgery
PROC: HZ2ZZZZ Detoxification Services for Substance Abuse Treatment (ICD-10-PCS; principal; 2019-03-14)
DX: F11.23 Opioid dependence with withdrawal (principal); F10.230 Alcohol dependence with withdrawal, uncomplicated; F13.230 Sedative, hypnotic or anxiolytic dependence with withdrawal, uncomplicated; F14.20 Cocaine dependence, uncomplicated; F17.213 Nicotine dependence, cigarettes, with withdrawal
CPT/HCPCS: 36415; 80053; 85027; 86593

== ENCOUNTER 2019-03-31 11:41 | Inpatient (IN) | payer OTHER ==
--- NOTE | 2019-03-31 19:49 | HP ---
COWS - Scale Resting Pulse: 0= [place] 80 or Below Sweatin=Flushed/Facial Moisture Restless Observation: 5= Unable to Sit Still Pupil Size: 1= Pupils >than Normal Bone or Joint Aches: 4=Acute Joint/Muscle Pain Runny Nose/ Eye Tearin= Nasal Congestion GI Upset > 30mins: 2= Nausea/Diarrhea Tremor Observation: 0= None Yawning Observation: 0= None Anxiety or Irritability: 2=Irritable/Anxious Goose Flesh Skin: 0=Smooth Skin COWS Score: 17 CIWA Score Nausea/Vomitin-No Nausea/No Vomiting Muscle Tremors: None Anxiety: 4-Mod. Anxious/Guarded Agitation: 4-Moderately Restless Paroxysmal Sweats: 3 Orientation: 2-Disoriented Date<2 days Tacttile Disturbances: 2-Mild Itch/Numbness/Burn Auditory Disturbances: 0-None Visual Disturbances: 2-Mild Sensitivity Headache: 3-Moderate CIWA-Ar Total Score: 20 - Admission Criteria OASAS Guidelines: Admission for Medically Managed Detox: Requires at least one of the followin. CIWA greater than 12 2. Seizures within the past 24 hours 3. Delirium tremens within the past 24 hours 4. Hallucinations within the past 24 hours 5. Acute intervention needed for co occurring medical disorder 6. Acute intervention needed for co occurring psychiatric disorder 7. Severe withdrawal that cannot be handled at a lower level of care (continued vomiting, continued diarrhea, abnormal vital signs) requiring intravenous medication and/or fluids 8. Patient presents the following: CIWA greater than 12 Admission Criteria Met: Admission criteria met Admission [facility] Chief Complaint: c/o withdrawal sx's. seeking detox Allergies/Adverse Reactions: Allergies Allergy/AdvReac Type Severity Reaction Status Date / Time vancomycin Allergy Intermediate Rash Verified 03/31/19 15:34 chlordiazepoxide AdvReac Verified 03/31/19 15:34 [From Librium] librium AdvReac Uncoded 03/31/19 15:34 History of Present Illness: 28 y.o. male ivda with polysubstance abuse to include cocaine, oxy, opi, fentanyl, crystal meth. cannabis here for xanax detox. client reports he is presently on mmtp 30 mg daily [address] [facility]. reports has not medicated in 2 weeks. utox + mtd. client recants and now states 3 days ago he was last medicated. client informed dose verification would take place if active client will cont mmtp dose if not then will detox for opi. client agrees to plan. he is also non complaint with txment. past six admission he has signed out ama after 2 days consecutively. he was last here 2 weeks ago. d/w client that he may benefit from outpatient. Client is adamant that he needs to and will complete detox due to an acs case. no documentation provided. he is self referred. He presents with worsening withdrawal sx's cows-17/ ciwa-20. reports longest clean time 14 months. Denies hx/o seizures, si/hi/avh. hx/o drug overdose x 1. domiciled. Exam Limitations: No Limitations - Ebola screening Have you traveled outside of the country in the last 21 days: No (N) Have you had contact with anyone from an Ebola affected area: No Do you have a fever: No - Review of Systems Constitutional: Chills, Loss of Appetite, Malaise, Night Sweats EENT: reports: Nose Congestion, Dental Problems (missing teeth/ denutres) Respiratory: reports: No Symptoms reported Cardiac: reports: No Symptoms Reported GI: reports: Diarrhea, Poor Appetite, Poor Fluid Intake : reports: No Symptoms Reported Musculoskeletal: reports: Joint Pain Integumentary: reports: Flushing Neuro: reports: No Symptoms reported Endocrine: reports: No Symptoms Reported Hematology: reports: No Symptoms Reported Psychiatric: reports: Orientated x3, Agitated, Anxious Other Systems: Reviewed and Negative Patient History - Patient Medical History Hx Anemia: No Hx Asthma: No Hx Chronic Obstructive Pulmonary Disease (COPD): No Hx Cancer: No Hx Cardiac Disorders: No Hx Congestive Heart Failure: No Hx Hypertension: No Hx Hypercholesterolemia: No Hx Pacemaker: No HX Cerebrovascular Accident: No Hx Seizures: No Hx Dementia: No Hx Diabetes: No Hx Gastrointestinal Disorders: No Hx Liver Disease: No Hx Genitourinary Disorders: No Hx Sexually Transmitted Disorders: No Hx Renal Disease (ESRD): No Hx Thyroid Disease: No Hx Human Immunodeficiency Virus (HIV): No Hx Hepatitis C: No Hx Depression: No Hx Suicide Attempt: No Hx Bipolar Disorder: No Hx Schizophrenia: No - Patient Surgical History Past Surgical History: Yes Hx Neurologic Surgery: No Hx Cataract Extraction: No Hx Cardiac Surgery: No Hx Lung Surgery: No Hx Breast Surgery: No Hx Breast Biopsy: No Hx Abdominal Surgery: Yes (LEFT INGUINAL HERNIA REPAIR 1990) Hx Appendectomy: No Hx Cholecystectomy: No Hx Genitourinary Surgery: No Hx Section: No Hx Orthopedic Surgery: No Other Surgical History: left inguinal hernia repair 1990 Anesthesia Reaction: No - PPD History Previous Implant?: Yes Documented Results: Negative w/proof Implanted On Prior [facility] Admission?: Yes Date: 11/14/18 Results: 1 MM PPD to be Administered?: No - Smoking Cessation Smoking history: Current every day smoker Have you smoked in the past 12 months: Yes Aproximately how many cigarettes per day: 20 Cigars Per Day: 0 Hx Chewing Tobacco Use: No Initiated information on smoking cessation: Yes 'Breaking Loose' booklet given: 03/31/19 - Substance & Tx. History Hx Alcohol Use: No Hx Substance Use: Yes Substance Use Type: Cocaine, Heroin, Marijuana, Opiates, Tranquilizers (xanax) - Substances abused Heroin Substance route: Injection Frequency: Daily Amount used: 10 BAGS Age of first use: 24 Date of last use: 03/31/19 Alcohol Other (specify): VODKA Substance route: Oral Frequency: Daily Amount used: 2 PINTS Age of first use: 15 Date of last use: 03/30/19 Benzodiazepine (Klonopin) Other (specify): AND XANAX Substance route: Oral Frequency: Daily Amount used: 10-12 MG Age of first use: 12 Date of last use: 03/30/19 Cocaine Substance route: Injection Frequency: 1-2 times per week Amount used: $100 Age of first use: 22 Date of last use: 03/28/19 Family Disease History - Family Disease History Family Disease History: Heart Disease: Grandparent (), Other: Father, Mother (thyroid), Brother (/OD) Admission Physical Exam BHS - Vital Signs Vital Signs: Vital Signs - 24 hr 03/31/19 03/31/19 15:40 18:31 Temperature 97.6 F 97.6 F Pulse Rate 60 60 Respiratory 16 16 Rate Blood Pressure 98/71 98/71 - Physical General Appearance: Yes: Irritable, Anxious HEENTM: Yes: EOMI, Normocephalic, Normal Voice, ZACARIAS (dilated), Pharynx Normal, Nasal Congestion Respiratory: Yes: Chest Non-Tender, Lungs Clear, Normal Breath Sounds, No Respiratory Distress, No Accessory Muscle Use Neck: Yes: No masses,lesions,Nodules, Supple, Trachea in good position Breast: Yes: Breast Exam Deferred Cardiology: Yes: Regular Rhythm, Regular Rate, S1, S2 Abdominal: Yes: Normal Bowel Sounds, Non Tender, Soft Genitourinary: Yes: Within Normal Limits (no c/o offered) Back: Yes: Normal Inspection Musculoskeletal: Yes: full range of Motion, Gait Steady Extremities: Yes: Normal Range of Motion, Non-Tender Neurological: Yes: Fully Oriented, Alert, Motor Strength 5/5 Integumentary: Yes: Dry, Warm, Track [place] (r and left ue), Other (flushed) Lymphatic: Yes: Within Normal Limits - Diagnostic (1) At risk for dehydration due to poor fluid intake Current Visit: No Status: Acute (2) Bradycardia Current Visit: No Status: Acute (3) Cocaine dependence, uncomplicated Current Visit: No Status: Acute (4) Depressed affect Current Visit: No Status: Acute (5) Hypotension Current Visit: No Status: Acute (6) Substance-induced anxiety disorder Current Visit: No Status: Acute (7) Substance-induced sleep disorder Current Visit: No Status: Acute (8) Uncomplicated sedative, hypnotic or anxiolytic withdrawal Current Visit: No Status: Acute (9) Cannabis dependence Current Visit: No Status: Chronic (10) Cocaine dependence Current Visit: No Status: Chronic Qualifiers: Substance use status: uncomplicated Qualified Code(s): F14.20 - Cocaine dependence, uncomplicated (11) Nicotine dependence Current Visit: No Status: Chronic Qualifiers: Nicotine product type: cigarettes Substance use status: in withdrawal Qualified Code(s): F17.213 - Nicotine dependence, cigarettes, with withdrawal (12) Opioid dependence Current Visit: No Status: Chronic Cleared for Admission [facility] - Detox or Rehab [facility] Level of Care: Medically Managed Detox Regimen/Protocol: Valium Claeared for Rehab Admission: No Breathalyzer - Breathalyzer Breathalyzer: 0 Urine Drug Screen - Test Device Lot number: [id number] Expiration date: 12/08/20 - Control Is test valid?: Yes - Results Drug screen NEGATIVE: No Urine drug screen results: THC-Marijuana, PINA-Cocaine, MET-Methamphetamine, AMP- Amphetamines, FEN-Fentanyl, MOP-Opiates, OXY-Oxycodone, MTD-Methadone, BAR- Barbiturates, BZO-Benzodiazepines Inpatient Rehab Admission - Rehab Decision to Admit Inpatient rehab admission?: No
[2019-03-31] MEDS ORDERED: BISMUTH SUBSALICYLATE 524 MG/30 ML UD PO PRN (20:02)
[2019-03-31] MEDS ORDERED: NICOTINE POLACRILEX 2 MG GUM BUC PRN (20:02)
[2019-03-31] MEDS ORDERED: MAG HYDROX/AL HYDROX/SIMETH 30 ML UNIT-DOSE CUP PO PRN (20:02)
[2019-03-31] MEDS ORDERED: P-EPHED 60MG/TRIPROLIDI 2.5MG TABLET PO PRN (20:02)
[2019-03-31] MEDS ORDERED: MAGNESIUM CITRATE 300 ML BOTTLE PO PRN (20:02)
[2019-03-31] MEDS ORDERED: guaiFENesin 200 MG/10 ML 10 ML UNIT-DOSE CUPS PO PRN (20:02)
[2019-03-31] MEDS ORDERED: ACETAMINOPHEN 325 MG TABLET (FP) PO PRN ×2 (20:02)
[2019-03-31] MEDS ORDERED: IBUPROFEN 400 MG TABLET (FP) PO PRN (20:02)
[2019-03-31] MEDS ORDERED: MAGNESIUM HYDROX 2400MG/30ML ORAL SUSPENSION 30 ML CUP PO PRN (20:02)
[2019-03-31] MEDS ORDERED: METHOCARBAMOL 500 MG TABLET PO PRN (20:02)
[2019-03-31] MEDS ORDERED: hydrOXYzine PAMOATE 25 MG CAPSULE (FP) PO PRN (20:02)
[2019-03-31] MEDS ORDERED: MENTHOL/PHENOL 1 EACH UD MM PRN (20:02)
[2019-03-31] MEDS ORDERED: DICYCLOMINE HCL 10 MG CAPSULE PO PRN (20:02)
[2019-03-31] MEDS ORDERED: MELATONIN 5 MG TABLETS PO PRN (20:02)
[2019-03-31] MEDS ORDERED: ONDANSETRON *ODT* 4 MG TABLET SL PRN (20:02)
[2019-03-31] MEDS: diazePAM 5 MG TABLET PO PRN (21:06)
[2019-03-31] MEDS ORDERED: THIAMINE HCL 100 MG TABLET (FP) PO SCH (22:00)
[2019-03-31] MEDS: diazePAM 5 MG TABLET PO SCH (23:02)
[2019-03-31] MEDS: GABAPENTIN 100 MG CAPSULE (FP) PO SCH (23:02)
[2019-04-01] MEDS: diazePAM 5 MG TABLET PO SCH ×2 (05:39→13:02)
[2019-04-01] MEDS: GABAPENTIN 100 MG CAPSULE (FP) PO SCH (05:39)
[2019-04-01 09:36] VITALS: BP 144/90; PULSE 82; TEMP 97.8
[2019-04-01] MEDS ORDERED: METHADONE HCL 10 MG TABLET PO SCH (09:45)
[2019-04-01] MEDS ORDERED: NICOTINE 21 MG/24 HOURS TOPICAL PATCH TD SCH (10:00)
[2019-04-01] MEDS ORDERED: PRENATAL VITAMINS W/ FOLIC ACID TABLET (FP) PO SCH (10:00)
[2019-04-01] MEDS: diazePAM 5 MG TABLET PO PRN (10:06)
--- NOTE | 2019-04-01 11:12 | PN ---
S CIWA - CIWA Score Nausea/Vomitin Muscle Tremors: 3 Anxiety: 3 Agitation: 3 Paroxysmal Sweats: 3 Orientation: 0-Oriented Tacttile Disturbances: 0-None Auditory Disturbances: 0-None Visual Disturbances: 0-None Headache: 2-Mild CIWA-Ar Total Score: 16 BHS COWS - Scale Resting Pulse: 0= [place] 80 or Below Sweatin=Flushed/Facial Moisture Restless Observation: 1= Difficult to Sit Still Pupil Size: 0= Normal to Room Light Bone or Joint Aches: 2= Severe Diffuse Aches Runny Nose/ Eye Tearin= Nasal Congestion GI Upset > 30mins: 2= Nausea/Diarrhea Tremor Observation of Outstretched Hands: 2= Slight Tremor Visible Yawning Observation: 0= None Anxiety or Irritability: 2=Irritable/Anxious Goose Flesh Skin: 0=Smooth Skin COWS Score: 12 [facility] Progress Note (SOAP) Subjective: Sweats, tremors, nausea, irritability, interrupted sleep Objective: 04/01/19 11:07 Vital Signs 04/01/19 04/01/19 04/01/19 03:30 07:13 09:36 Temperature 97.3 F L 97.8 F Pulse Rate 44 L 82 Respiratory 18 16 18 Rate Blood Pressure 100/60 144/90 Alert, mildly distressed from withdrawal sxs Assessment: 04/01/19 11:08 Withdrawal sx Plan: Continue detox
[2019-04-01 11:25] LABS: ALBUMIN 3.8 g/dl (3.4-5.0); BILIRUBIN,TOTAL 0.3 mg/dL (0.2-1); CALCIUM 9.2 mg/dL (8.5-10.1); CREATININE 0.8 mg/dL (0.55-1.3); TOT PROT 6.8 g/dl (6.4-8.2)
[2019-04-01 12:33] LABS: HEMATOCRIT 42.8 % (35.4-49); HEMOGLOBIN 14.6 GM/dL (11.7-16.9); MCHC 34.2 g/dl (32.0-35.9); MEAN CELL VOLUME 90.5 fl (80-96); PLATELET COUNT 252 K/MM3 (134-434); RBC 4.73 M/mm3 (4.00-5.60); RDW 13.3 % (11.9-15.9); WHITE BLOOD COUNT 6.1 K/mm3 (4.0-10.0)
--- NOTE | 2019-04-01 14:12 | DS ---
[facility] Detox Discharge Summary Admission Date: 03/31/19 Discharge Date: 04/01/19 - History Pertinent Past History: Illicit drug use On methadone program - Physical Exam Results Vital Signs: Vital Signs Temperature 97.8 F 04/01/19 09:36 Pulse Rate 82 04/01/19 09:36 Respiratory Rate 18 04/01/19 09:36 Blood Pressure 144/90 04/01/19 09:36 O2 Sat by Pulse Oximetry (%) Pertinent Admission Physical Exam Findings: Withdrawal sx Laboratory Last Values WBC 6.1 K/mm3 (4.0-10.0) 04/01/19 07:50 RBC 4.73 M/mm3 (4.00-5.60) 04/01/19 07:50 Hgb 14.6 GM/dL (11.7-16.9) 04/01/19 07:50 Hct 42.8 % (35.4-49) 04/01/19 07:50 MCV 90.5 fl (80-96) 04/01/19 07:50 MCH 31.0 pg (25.7-33.7) 04/01/19 07:50 MCHC 34.2 g/dl (32.0-35.9) 04/01/19 07:50 RDW 13.3 % (11.9-15.9) 04/01/19 07:50 Plt Count 252 K/MM3 (134-434) 04/01/19 07:50 MPV 9.0 fl (7.5-11.1) 04/01/19 07:50 Sodium 140 mmol/L (136-145) 04/01/19 07:50 Potassium 4.0 mmol/L (3.5-5.1) 04/01/19 07:50 Chloride 107 mmol/L (98-107) 04/01/19 07:50 Carbon Dioxide 27 mmol/L (21-32) 04/01/19 07:50 Anion Gap 6 MMOL/L (8-16) L 04/01/19 07:50 BUN 12 mg/dL (7-18) 04/01/19 07:50 Creatinine 0.8 mg/dL (0.55-1.3) 04/01/19 07:50 Est GFR (CKD-EPI)AfAm 139.91 04/01/19 07:50 Est GFR (CKD-EPI)NonAf 120.72 04/01/19 07:50 Random Glucose 101 mg/dL (74-106) 04/01/19 07:50 Calcium 9.2 mg/dL (8.5-10.1) 04/01/19 07:50 Total Bilirubin 0.3 mg/dL (0.2-1) 04/01/19 07:50 AST 11 U/L (15-37) L 04/01/19 07:50 ALT 20 U/L (13-61) 04/01/19 07:50 Alkaline Phosphatase 78 U/L (45-117) 04/01/19 07:50 Total Protein 6.8 g/dl (6.4-8.2) 04/01/19 07:50 Albumin 3.8 g/dl (3.4-5.0) 04/01/19 07:50 Labs noted - Medication Discharge Medications: Ambulatory Orders Gabapentin 300 mg PO TID 03/14/19 Quetiapine Fumarate [Seroquel] 50 mg PO HS 03/14/19 Methadone [Dolophine -] 30 mg PO DAILY 03/26/19 - Diagnosis (1) Methadone maintenance therapy patient Current Visit: Yes Status: Acute (2) Alcohol dependence with uncomplicated withdrawal Current Visit: No Status: Acute (3) Cocaine dependence, uncomplicated Current Visit: No Status: Acute (4) Nicotine dependence Current Visit: No Status: Chronic Qualifiers: Nicotine product type: cigarettes Substance use status: in withdrawal Qualified Code(s): F17.213 - Nicotine dependence, cigarettes, with withdrawal (5) Opioid dependence Current Visit: No Status: Chronic - AMA Did Patient Leave Against Medical Advice: Yes (Pt irritable and using curse words when attempted to grief counsellor)
[2019-04-02] MEDS ORDERED: diazePAM 5 MG TABLET PO SCH (10:00)
[2019-04-03] MEDS ORDERED: diazePAM 5 MG TABLET PO SCH (06:00)
== END 2019-04-01 14:30 | disposition left against medical advice (07) | DRG 770 ==
LOC: YASAS 11:41 → Y3N 20:10
PROVIDERS: ADMIT Surgery; ATTEND Surgery
PROC: HZ2ZZZZ Detoxification Services for Substance Abuse Treatment (ICD-10-PCS; principal; 2019-03-31)
DX: F11.23 Opioid dependence with withdrawal (principal); F10.230 Alcohol dependence with withdrawal, uncomplicated; F14.20 Cocaine dependence, uncomplicated; F17.213 Nicotine dependence, cigarettes, with withdrawal; F32.9 Major depressive disorder, single episode, unspecified; F19.280 Other psychoactive substance dependence with psychoactive substance-induced anxiety disorder; F19.282 Other psychoactive substance dependence with psychoactive substance-induced sleep disorder; R63.8 Other symptoms and signs concerning food and fluid intake; R00.1 Bradycardia, unspecified; I95.9 Hypotension, unspecified; Z88.1 Allergy status to other antibiotic agents; Z88.8 Allergy status to other drugs, medicaments and biological substances
CPT/HCPCS: 36415; 80053; 85027; 86593

== ENCOUNTER 2019-07-30 13:31 | Inpatient (IN) | payer OTHER ==
[2019-07-30 16:38] VITALS: BMI 19.2
[2019-07-30] MEDS ORDERED: NICOTINE POLACRILEX 2 MG GUM BUC PRN (17:24)
[2019-07-30] MEDS ORDERED: MAGNESIUM HYDROX 2400MG/30ML ORAL SUSPENSION 30 ML CUP PO PRN (17:24)
[2019-07-30] MEDS ORDERED: IBUPROFEN 400 MG TABLET (FP) PO PRN (17:24)
[2019-07-30] MEDS ORDERED: MAG HYDROX/AL HYDROX/SIMETH 30 ML UNIT-DOSE CUP PO PRN (17:24)
[2019-07-30] MEDS ORDERED: hydrOXYzine PAMOATE 25 MG CAPSULE (FP) PO PRN (17:24)
[2019-07-30] MEDS ORDERED: MAGNESIUM CITRATE 300 ML BOTTLE PO PRN (17:24)
[2019-07-30] MEDS ORDERED: ACETAMINOPHEN 325 MG TABLET (FP) PO PRN (17:24)
[2019-07-30] MEDS ORDERED: MENTHOL/PHENOL 1 EACH UD MM PRN (17:24)
[2019-07-30] MEDS ORDERED: BISMUTH SUBSALICYLATE 524 MG/30 ML UD PO PRN (17:24)
[2019-07-30] MEDS ORDERED: METHOCARBAMOL 500 MG TABLET PO PRN (17:24)
--- NOTE | 2019-07-30 17:24 | HP ---
COWS - Scale Resting Pulse: 0= [place] 80 or Below Sweatin=Flushed/Facial Moisture Restless Observation: 1= Difficult to Sit Still Pupil Size: 2= Moderately Dilated Bone or Joint Aches: 1= Mild Discomfort Runny Nose/ Eye Tearin= Runny Nose/Eyes GI Upset > 30mins: 1= Stomach Cramp Tremor Observation: 2= Slight Tremor Visible Yawning Observation: 0= None Anxiety or Irritability: 2=Irritable/Anxious Goose Flesh Skin: 0=Smooth Skin COWS Score: 13 CIWA Score Nausea/Vomitin Muscle Tremors: 3 Anxiety: 3 Agitation: 2 Paroxysmal Sweats: No Perspiration Orientation: 0-Oriented Tacttile Disturbances: 0-None Auditory Disturbances: 2-Mild Harshness/Frighten Visual Disturbances: 1-Very Mild Sensitivity Headache: 1-Very Mild CIWA-Ar Total Score: 14 - Admission Criteria [facility]ASAS Guidelines: Admission for Medically Managed Detox: Requires at least one of the followin. CIWA greater than 12 2. Seizures within the past 24 hours 3. Delirium tremens within the past 24 hours 4. Hallucinations within the past 24 hours 5. Acute intervention needed for co occurring medical disorder 6. Acute intervention needed for co occurring psychiatric disorder 7. Severe withdrawal that cannot be handled at a lower level of care (continued vomiting, continued diarrhea, abnormal vital signs) requiring intravenous medication and/or fluids 8. 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 WANTS REHAB - Ebola screening Have you traveled outside of the country in the last 21 days: No (N) Have you had contact with anyone from an Ebola affected area: No Do you have a fever: No - Review of Systems Constitutional: Loss of Appetite, Malaise, Changes in sleep EENT: reports: No Symptoms Reported Respiratory: reports: No Symptoms reported Cardiac: reports: No Symptoms Reported GI: reports: Nausea, Vomiting, Abdominal cramping : reports: No Symptoms Reported Musculoskeletal: reports: No Symptoms Reported Integumentary: reports: No Symptoms Reported Neuro: reports: No Symptoms reported Endocrine: reports: No Symptoms Reported Hematology: reports: No Symptoms Reported Psychiatric: reports: Mood/Affect Appropiate, Orientated x3 Patient History - Patient Medical History Hx Anemia: No Hx Asthma: No Hx Chronic Obstructive Pulmonary Disease (COPD): No Hx Cancer: No Hx Cardiac Disorders: No Hx Congestive Heart Failure: No Hx Hypertension: No Hx Hypercholesterolemia: No Hx Pacemaker: No HX Cerebrovascular Accident: No Hx Seizures: No Hx Dementia: No Hx Diabetes: No Hx Gastrointestinal Disorders: No Hx Liver Disease: No Hx Genitourinary Disorders: No Hx Sexually Transmitted Disorders: No Hx Renal Disease (ESRD): No Hx Thyroid Disease: No Hx Human Immunodeficiency Virus (HIV): No Hx Hepatitis C: No Hx Depression: No Hx Suicide Attempt: No Hx Bipolar Disorder: No Hx Schizophrenia: No - Patient Surgical History Past Surgical History: Yes Hx Neurologic Surgery: No Hx Cataract Extraction: No Hx Cardiac Surgery: No Hx Lung Surgery: No Hx Breast Surgery: No Hx Breast Biopsy: No Hx Abdominal Surgery: Yes (LEFT INGUINAL HERNIA REPAIR 1990) Hx Appendectomy: No Hx Cholecystectomy: No Hx Genitourinary Surgery: No Hx Section: No Hx Orthopedic Surgery: No Other Surgical History: left inguinal hernia repair 1990 Anesthesia Reaction: No - PPD History Date: 11/14/18 Results: 1 MM - Smoking Cessation Smoking history: Current every day smoker Have you smoked in the past 12 months: Yes Aproximately how many cigarettes per day: 20 Cigars Per Day: 0 Hx Chewing Tobacco Use: No Initiated information on smoking cessation: Yes 'Breaking Loose' booklet given: 07/30/19 - Substances abused Heroin Substance route: Injection Frequency: Daily Amount used: 7-10 bags Age of first use: 24 Date of last use: 04/30/19 Alcohol Other (specify): VODKA Substance route: Oral Frequency: 1-2 times per week Amount used: 1 pint Age of first use: 15 Date of last use: 07/29/19 Benzodiazepine (Klonopin) Other (specify): AND XANAX Substance route: Oral Frequency: Daily Amount used: 10-12 MG Age of first use: 12 Date of last use: 03/30/19 Cocaine Substance route: Injection Frequency: 1-2 times per week Amount used: 50usd Age of first use: 20 Date of last use: 07/10/19 Alprazolam (Xanax) Substance route: Oral Frequency: Daily Amount used: 6-8mg/day Age of first use: 24 Date of last use: 07/29/19 Admission Physical Exam [facility] - Vital Signs Vital Signs: Vital Signs - 24 hr 07/30/19 16:16 Temperature 96.8 F L Pulse Rate 78 Respiratory 18 Rate Blood Pressure 89/58 L - Physical General Appearance: Yes: Disheveled, Irritable, Anxious HEENTM: Yes: EOMI Respiratory: Yes: Chest Non-Tender, Lungs Clear Neck: Yes: No masses,lesions,Nodules Breast: Yes: Within Normal Limits Cardiology: Yes: Regular Rhythm, Regular Rate, S1, S2 Abdominal: Yes: Normal Bowel Sounds Genitourinary: Yes: Within Normal Limits Back: Yes: Within Normal Limits Musculoskeletal: Yes: full range of Motion, Gait Steady Extremities: Yes: Normal Capillary Refill, Normal Inspection, Normal Range of Motion Neurological: Yes: Within Normal Limits, wheat buyer II-XII NML intact, Fully Oriented, Alert, Motor Strength 5/5, Normal Mood/Affect Integumentary: Yes: Within Normal Limits Lymphatic: Yes: Within Normal Limits - Diagnostic (1) Alcohol dependence with uncomplicated withdrawal Current Visit: Yes Status: Acute (2) Cocaine dependence Current Visit: Yes Status: Chronic (3) Opioid dependence with withdrawal Current Visit: Yes Status: Acute (4) Sedative, hypnotic or anxiolytic dependence with withdrawal, uncomplicated Current Visit: Yes Status: Acute Cleared for Admission [facility] - Detox or Rehab [facility] Level of Care: Medically Supervised Detox Regimen/Protocol: Methadone/Valium Breathalyzer - Breathalyzer Breathalyzer: 0 Urine Drug Screen - Test Device Lot number: [id number] Expiration date: 04/07/21 - Control Is test valid?: Yes - Results Drug screen NEGATIVE: No Urine drug screen results: MET-Methamphetamine, FEN-Fentanyl, MOP-Opiates, OXY- Oxycodone, MTD-Methadone, MDMA-Ecstasy Inpatient Rehab Admission - Rehab Decision to Admit Inpatient rehab admission?: No
[2019-07-30] MEDS ORDERED: METHADONE (DETOX) 20 MG, METHADONE (DETOX) 5 MG PO ONE (17:26)
[2019-07-30] MEDS ORDERED: METHADONE HCL 5 MG TABLET (FOR DETOX USE ONLY) ONE (18:15)
[2019-07-30] MEDS ORDERED: METHADONE HCL 10 MG TABLET (FOR DETOX USE ONLY) ONE (18:15)
[2019-07-30] MEDS: diazePAM 5 MG TABLET PO PRN (18:17)
[2019-07-30] MEDS: NICOTINE 21 MG/24 HOURS TOPICAL PATCH TD SCH (18:17)
[2019-07-30] MEDS: diazePAM 5 MG TABLET PO SCH (22:16)
[2019-07-30] MEDS: THIAMINE HCL 100 MG TABLET (FP) PO SCH (22:16)
[2019-07-30] MEDS: MELATONIN 5 MG TABLETS PO PRN (22:16)
[2019-07-31] MEDS: diazePAM 5 MG TABLET PO SCH ×3 (06:15→22:15)
--- NOTE | 2019-07-31 09:22 | PN ---
[facility] CIWA - CIWA Score Nausea/Vomitin-Mild Nausea/No Vomiting Muscle Tremors: 2 Anxiety: 3 Agitation: 2 Paroxysmal Sweats: 1-Minimal Palms Moist Orientation: 0-Oriented Tacttile Disturbances: 0-None Auditory Disturbances: 0-None Visual Disturbances: 0-None Headache: 0-None Present CIWA-Ar Total Score: 9 S Progress Note (SOAP) Subjective: methadone program 60 mg po daily last dose 07/28/19 received methadone 25 mg on 07/30/19 methadone verified 07/31/19 patient received one 45 mg of methadone and will received one 25 mg po methadone today doing well with valium detox regimen feeling tired prefers to stay in bed resting Objective: 07/31/19 11:53 Vital Signs Temperature 97.0 F L 07/31/19 09:34 Pulse Rate 47 L 07/31/19 09:34 Respiratory Rate 18 07/31/19 09:34 Blood Pressure 88/50 L 07/31/19 09:34 O2 Sat by Pulse Oximetry (%) Laboratory Last Values WBC 4.5 K/mm3 (4.0-10.0) 07/31/19 08:50 RBC 4.72 M/mm3 (4.00-5.60) 07/31/19 08:50 Hgb 14.5 GM/dL (11.7-16.9) 07/31/19 08:50 Hct 43.2 % (35.4-49) 07/31/19 08:50 MCV 91.6 fl (80-96) 07/31/19 08:50 MCH 30.7 pg (25.7-33.7) 07/31/19 08:50 MCHC 33.5 g/dl (32.0-35.9) 07/31/19 08:50 RDW 14.1 % (11.9-15.9) 07/31/19 08:50 Plt Count 196 K/MM3 (134-434) D 07/31/19 08:50 MPV 9.2 fl (7.5-11.1) 07/31/19 08:50 Sodium 139 mmol/L (136-145) 07/31/19 08:30 Potassium 3.9 mmol/L (3.5-5.1) 07/31/19 08:30 Chloride 104 mmol/L (98-107) 07/31/19 08:30 Carbon Dioxide 27 mmol/L (21-32) 07/31/19 08:30 Anion Gap 8 MMOL/L (8-16) 07/31/19 08:30 BUN 11.0 mg/dL (7-18) 07/31/19 08:30 Creatinine 0.7 mg/dL (0.55-1.3) 07/31/19 08:30 Est GFR (CKD-EPI)AfAm 147.81 07/31/19 08:30 Est GFR (CKD-EPI)NonAf 127.53 07/31/19 08:30 Random Glucose 105 mg/dL (74-106) 07/31/19 08:30 Calcium 9.4 mg/dL (8.5-10.1) 07/31/19 08:30 Total Bilirubin 0.4 mg/dL (0.2-1) 07/31/19 08:30 AST 102 U/L (15-37) H 07/31/19 08:30 ALT 253 U/L (13-61) H 07/31/19 08:30 Alkaline Phosphatase 150 U/L (45-117) H 07/31/19 08:30 Total Protein 6.6 g/dl (6.4-8.2) 07/31/19 08:30 Albumin 3.5 g/dl (3.4-5.0) 07/31/19 08:30 lab noted repeat ast Assessment: 07/31/19 11:53 alcohol and benzo withdrawal sx Plan: continue valium detox regimen
[2019-07-31] MEDS ORDERED: METHADONE HCL 10 MG TABLET PO ONE ×2 (10:00→10:59)
[2019-07-31] MEDS ORDERED: METHADONE 40 MG, METHADONE 5 MG PO ONE (10:00)
[2019-07-31 10:41] LABS: HEMATOCRIT 43.2 % (35.4-49); HEMOGLOBIN 14.5 GM/dL (11.7-16.9); MCH 30.7 pg (25.7-33.7); MCHC 33.5 g/dl (32.0-35.9); MEAN CELL VOLUME 91.6 fl (80-96); MEAN PLT VOLUME 9.2 fl (7.5-11.1); PLATELET COUNT 196 K/MM3 (134-434); RBC 4.72 M/mm3 (4.00-5.60); RDW 14.1 % (11.9-15.9); WHITE BLOOD COUNT 4.5 K/mm3 (4.0-10.0)
[2019-07-31 10:42] LABS: ALBUMIN 3.5 g/dl (3.4-5.0); BILIRUBIN,TOTAL 0.4 mg/dL (0.2-1); CALCIUM 9.4 mg/dL (8.5-10.1); CREATININE 0.7 mg/dL (0.55-1.3); POTASSIUM 3.9 mmol/L (3.5-5.1); TOT PROT 6.6 g/dl (6.4-8.2)
[2019-07-31] MEDS ORDERED: METHADONE HCL 5 MG TABLET ONE ×2 (10:53→11:54)
[2019-07-31] MEDS ORDERED: METHADONE HCL 40 MG DISPERSABLE TABLET ONE (10:53)
[2019-07-31] MEDS: PRENATAL VITAMINS W/ FOLIC ACID TABLET (FP) PO SCH (10:54)
[2019-07-31] MEDS: NICOTINE 21 MG/24 HOURS TOPICAL PATCH TD SCH (10:55)
[2019-07-31] MEDS ORDERED: METHADONE 20 MG, METHADONE 5 MG PO ONE (11:45)
[2019-07-31] MEDS ORDERED: METHADONE HCL 10 MG TABLET ONE (11:53)
[2019-07-31] MEDS: diazePAM 5 MG TABLET PO PRN (17:07)
[2019-07-31] MEDS: ACETAMINOPHEN 325 MG TABLET (FP) PO PRN (17:08)
[2019-07-31] MEDS: MELATONIN 5 MG TABLETS PO PRN (22:15)
[2019-07-31] MEDS: THIAMINE HCL 100 MG TABLET (FP) PO SCH (22:15)
[2019-08-01] MEDS ORDERED: METHADONE HCL 10 MG TABLET ONE (04:23)
[2019-08-01] MEDS ORDERED: METHADONE HCL 40 MG DISPERSABLE TABLET ONE (04:24)
[2019-08-01] MEDS: METHADONE 40 MG, METHADONE 20 MG PO SCH (05:40)
[2019-08-01] MEDS: diazePAM 5 MG TABLET PO SCH ×2 (05:40→17:34)
[2019-08-01] MEDS ORDERED: METHADONE HCL 40 MG DISPERSABLE TABLET PO SCH (06:00)
--- NOTE | 2019-08-01 10:30 | PN ---
S CIWA - CIWA Score Nausea/Vomitin-No Nausea/No Vomiting Muscle Tremors: 2 Anxiety: 2 Agitation: 2 Paroxysmal Sweats: No Perspiration Orientation: 0-Oriented Tacttile Disturbances: 0-None Auditory Disturbances: 0-None Visual Disturbances: 0-None Headache: 0-None Present CIWA-Ar Total Score: 6 S Progress Note (SOAP) Subjective: doing well with valium detox regimen received methadone 60 mg po today feeling better today less tremor mild anxiety Objective: 08/01/19 10:30 Vital Signs Temperature 97.2 F L 08/01/19 09:34 Pulse Rate 75 08/01/19 09:34 Respiratory Rate 18 08/01/19 09:34 Blood Pressure 98/65 08/01/19 09:34 O2 Sat by Pulse Oximetry (%) Laboratory Last Values WBC 4.5 K/mm3 (4.0-10.0) 07/31/19 08:50 RBC 4.72 M/mm3 (4.00-5.60) 07/31/19 08:50 Hgb 14.5 GM/dL (11.7-16.9) 07/31/19 08:50 Hct 43.2 % (35.4-49) 07/31/19 08:50 MCV 91.6 fl (80-96) 07/31/19 08:50 MCH 30.7 pg (25.7-33.7) 07/31/19 08:50 MCHC 33.5 g/dl (32.0-35.9) 07/31/19 08:50 RDW 14.1 % (11.9-15.9) 07/31/19 08:50 Plt Count 196 K/MM3 (134-434) D 07/31/19 08:50 MPV 9.2 fl (7.5-11.1) 07/31/19 08:50 Sodium 139 mmol/L (136-145) 07/31/19 08:30 Potassium 3.9 mmol/L (3.5-5.1) 07/31/19 08:30 Chloride 104 mmol/L (98-107) 07/31/19 08:30 Carbon Dioxide 27 mmol/L (21-32) 07/31/19 08:30 Anion Gap 8 MMOL/L (8-16) 07/31/19 08:30 BUN 11.0 mg/dL (7-18) 07/31/19 08:30 Creatinine 0.7 mg/dL (0.55-1.3) 07/31/19 08:30 Est GFR (CKD-EPI)AfAm 147.81 07/31/19 08:30 Est GFR (CKD-EPI)NonAf 127.53 07/31/19 08:30 Random Glucose 105 mg/dL (74-106) 07/31/19 08:30 Calcium 9.4 mg/dL (8.5-10.1) 07/31/19 08:30 Total Bilirubin 0.4 mg/dL (0.2-1) 07/31/19 08:30 AST 102 U/L (15-37) H 07/31/19 08:30 ALT 253 U/L (13-61) H 07/31/19 08:30 Alkaline Phosphatase 150 U/L (45-117) H 07/31/19 08:30 Total Protein 6.6 g/dl (6.4-8.2) 07/31/19 08:30 Albumin 3.5 g/dl (3.4-5.0) 07/31/19 08:30 RPR Titer Nonreactive (NONREACTIVE) 07/31/19 08:30 lab noted repeat ast pending Assessment: 08/01/19 10:30 alcohol and benzo withdrawal sx Plan: continue valium detox regimen
[2019-08-01] MEDS: diazePAM 5 MG TABLET PO PRN ×2 (10:41→19:17)
[2019-08-01] MEDS: NICOTINE 21 MG/24 HOURS TOPICAL PATCH TD SCH (10:56)
[2019-08-01] MEDS: PRENATAL VITAMINS W/ FOLIC ACID TABLET (FP) PO SCH (10:56)
[2019-08-01] MEDS: ACETAMINOPHEN 325 MG TABLET (FP) PO PRN (17:34)
[2019-08-01] MEDS: MELATONIN 5 MG TABLETS PO PRN (22:04)
[2019-08-01] MEDS: THIAMINE HCL 100 MG TABLET (FP) PO SCH (22:04)
[2019-08-02] MEDS: diazePAM 5 MG TABLET PO PRN (01:43)
[2019-08-02] MEDS ORDERED: METHADONE HCL 10 MG TABLET ONE (04:12)
[2019-08-02] MEDS ORDERED: METHADONE HCL 40 MG DISPERSABLE TABLET ONE (04:13)
[2019-08-02] MEDS: METHADONE 40 MG, METHADONE 20 MG PO SCH (05:48)
[2019-08-02] MEDS ORDERED: diazePAM 5 MG TABLET PO ONE (06:00)
[2019-08-02 09:14] VITALS: BP 88/56; PULSE 52; TEMP 96.1
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
== END 2019-08-02 10:46 | disposition home or self-care (01) | DRG 773 ==
LOC: YASAS 13:31 → Y3N 16:54
PROVIDERS: ADMIT Surgery; ATTEND Surgery
PROC: HZ2ZZZZ Detoxification Services for Substance Abuse Treatment (ICD-10-PCS; principal; 2019-07-30)
DX: F11.23 Opioid dependence with withdrawal (principal); F10.230 Alcohol dependence with withdrawal, uncomplicated; F13.230 Sedative, hypnotic or anxiolytic dependence with withdrawal, uncomplicated; F14.20 Cocaine dependence, uncomplicated; F17.213 Nicotine dependence, cigarettes, with withdrawal; R63.4 Abnormal weight loss; Z88.1 Allergy status to other antibiotic agents
CPT/HCPCS: 36415; 80053; 85027; 86593